=== PATIENT | female | born 1945 | race Caucasian/White ===

== ENCOUNTER 2017-04-26 13:04 | Emergency (ER) | payer MEDICARE, MEDICAID ==
[~2017-04-26] VITALS: Ht 170.2 cm; Wt 65.8 kg
[~2017-04-26 13:04] MED LIST: AMLO5TAB PO; AMOXICOT500 MG PO; ATENOLOL50 MG PO; B COMPLEX1 EACH PO; CITALOPRAM40 MG PO; DIPHENHYDRAMINE25 M1 PO; FLUOXETINE20 MG PO; FLUTICASONE 50M16 GM; HYDROXYZINE50 MG PO; LISINOPRIL/HCTZ1 TA3 PO; LORTAB 5/500 501 TAB PO; MEDROL 4MG. DOSE4 MG PO; MELOXICAM7.5 MG PO; NAPROSYN 500MG500 MG PO; NAPROXEN SODIU220 MG PO; NORCO 325 MG-51 TAB PO; OMEPRAZOLE40 MG PO; PLAVIX75 MG PO; PRAVASTATIN SOD40 MG PO; PROPRANOLOL HCL10 MG PO; SPIRIVA HA1 PUFF/INH IH; TESSALON PERLE100 M1 PO; TRAZODONE50 MG PO; WELLBUTRIN 75MG75 MG PO
[2017-04-26] MEDS ORDERED: PERCOGESIC EXTR1 TAB PO (13:23)
[2017-04-26] MEDS ORDERED: KEFLEX 500MG.500 MG PO (13:23)
[2017-04-26] MEDS ORDERED: SILVADENE400 GM/JAR TP (13:24)
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
[2017-04-26 13:29] VITALS: BP 123/70
--- OUTSIDE RECORDS SUMMARY | 2017-04-26 13:53 | External Medical Summary Rpt ---
Author Author , ARIC CORBETT Address Unknown Phone [email or web address] Team Providers Care Production Proofreader Name Role Phone A Taco FLETCHER MD PSC, A Unavailable Unavailable Taco FELTCHER MD PSC ATTILI ANI, ATTILI Unavailable Unavailable ANI [facility] & Unavailable Unavailable CRITICAL, [facility] BEINEKE CHRISTIANO, BEINEKE Unavailable Unavailable CHRISTIANO BENSADOUN NICK, Unavailable Unavailable BENSADOUN NICK LARRY, LARRY Unavailable Unavailable [facility], Unavailable Unavailable [facility], [facility] TE WONG, TE JUDITH Unavailable Unavailable TE WONG, TE WONG Unavailable Unavailable [facility] Unavailable [facility]available [facility]available [facility]available [facility] Unavailable Unavailable INC, [facility] Un[facility] Un[facility]PITAL P, [facility] JERMAINE MARCO A, JERMAINE MARCO A Unavailable Unavailable [facility] RADHA VALENTIN, Unavailable Unavailable RADHA VALENTIN ELVA MICHELLE, ELVA MICHELLE Unavailable Unavailable [facility], [facility] C Unavailable Unavailable [facility] PANCHITO ART, PANCHITO Unavailable Unavailable ART JR. WILMA ANT, WILMA, Unavailable Unavailable JRBrad GOODE MAR, RUPA MAR Unavailable Unavailable SILVEIRA JAM, Unavailable Unavailable SILVEIRA JAM DOHERTY MAT, Unavailable Unavailable DOHERTY MAT DOMINIC OSWALD, DOMINIC OSWALD Unavailable Unavailable [facility], [facility], [facility] Unavailable Unavailable INC, [facility] PULMANO TORO, PULMANO Unavailable Unavailable TORO PURDOM MAT, PURDOM Unavailable Unavailable MAT [facility], Unavailable Unavailable [facility], Unavailable Unavailable [facility] Unavailable Unavailable [facility]AT, [facility] Unavailable [facility]available [facility]AT, [facility] RENUSCH, RENUSCH Unavailable Unavailable TY KAROL, TY Unavailable Unavailable KAROL SADEK MOH, SADEK MOH Unavailable Unavailable SCIFRES ANG, SCIFRES Unavailable Unavailable ANG DONAHUE MK, DONAHUE Unavailable Unavailable [facility], Unavailable Unavailable [facility] Un[facility] Unavailable Un[facility] [place] [facility], [facility] Purpose Continuity of Care Document - 06-03-2010 through 2016 Problems Code Diagnosis DOS Provider Status I10 ESSENTIAL 03-06-2017 [facility] HYPERTEN[facility]O [facility] N J449 CHRONIC 03-06-2017 [facility]IVE [facility] PULMONARY INC DISEASE UNS K219 GASTRO-ESOP 03-06-2017 [facility] H REFLUX [facility] DISEASE INC WITHOUT ESOPHAGITIS M160 BILATERAL 03-06-2017 [facility] OSTEOARTHRI [facility] TIS OF HIP M1611 UNILATERAL 03-06-2017 [place] [facility] TIS RIGHT HIP M1612 UNILATERAL 03-06-2017 [place] PRIMARY [facility] OSTEOARTHRI IMAGING ASS TIS LEFT HIP S30528 PAIN IN 03-06-2017 [place] RIGHT HIP MEDICAL IMAGING ASS Y04958 PAIN IN 03-06-2017 [place] LEFT HIP MEDICAL IM[facility]ING ASS Z720 TOBACCO USE 03-06-2017 [facility] INC D500 IRON 07-28-2016 [facility] DEFICIENCY SERV ANEMIA SEC [facility]OUNDATION TO BLOOD LOSS CHRONIC Z1231 ENCOUNTER 07-12-2016 [place] SCREENING MEDICAL MAMMO MALIG IMAGING ASS NEOPLASM BREAST G90627 ENCOUNTER 07-12-2016 [place] FOR MEDICAL SCREENING IMAGING ASS FOR OSTEOPOROSI S Z780 ASYMPTOMATI 07-12-2016 [place] C MEDICAL MENOPAUSAL IMAGING ASS STATE E538 DEFICIENCY 07-08-2016 [facility] OF OTHER [facility] SPECIFIED B INC GROUP VITAMINS E7800 PURE 07-08-2016 [facility] HYPERCHOLES [facility] TEROLEMIA INC UNSPECIFIED L509 URTICARIA 07-08-2016 [facility] UNSPECIFIED [facility] INC R945 ABNORMAL 07-08-2016 [facility] RESULTS OF [facility] LIVER INC FUNCTION STUDIES 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 SOLITARY 12-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 [facility] PULMONARY [facility] NODULE INC R918 OTHER 12-19-2015 [place] NONSPECIFIC MEDICAL ABNORMAL IMAGING ASS FINDING OF LUNG FIELD J439 EMPHYSEMA 12-17-2015 [facility] UNSPECIFIED [facility] INC K828 OTHER 11-28-2015 [place] SPECIFIED MEDICAL DISEASES OF IMAGING ASS GALLBLADDER L299 PRURITUS 11-28-2015 [facility] UNSPECIFIED [facility] INC R7989 OTHER SPEC 11-28-2015 [place] ABNORMAL MEDICAL FINDINGS IMAGING ASS BLOOD CHEMISTRY J069 ACUTE UPPER 09-11-2015 [facility] INFECTION UNSPECIFIED H2513 AGE-RELATED 08-29-2015 [facility] BILATERAL 4928 OTHER 06-06-2015 [place] EMPHYSEMA [facility]ICAL IMAGING ASS 11802 OTHER 06-06-2015 [place] DISEASES OF MEDICAL LUNG NOT IMAGING ASS ELSEWHERE CLASSIFIED 52536 OTHER 06-06-2015 [facility] NONSPECIFIC [facility] ABNORMAL INC FINDING OF LUNG FIELD 2689 UNSPECIFIED 02-28-2015 [facility] DEFICIENCY INCORPORAT 2724 OTHER AND 02-28-2015 [facility]NSPECIFIED [facility] INCORPORAT HYPERLIPIDE RAY 4019 UNSPECIFIED 02-28-2015 [facility] HYPERTENSIO INCORPORAT N 496 CHRONIC 02-28-2015 TE WONG AIRWAY OBSTRUCTION NEC 62478 ESOPHAGEAL 02-28-2015 TE WONG REFLUX 7242 LUMBAGO 02-28-2015 TE WONG 81477 OBSTRUCTIVE 12-11-2014 [facility] CHRONIC [facility] BRONCHITIS INC WITHOUT EXACERBAT V0481 NEED 06-21-2014 TE WONG PROPHYLACTI C VACCINATION &INOCULATIO N FLU V7612 OTHER 06-18-2014 [facility] MAMMOGRAM INC 4919 UNSPECIFIED 05-28-2014 [facility] CHRONIC [facility] BRONCHITIS INC V5869 LONG-TERM 05-22-2014 [facility] (CURRENT) [facility] USE OF INC OTHER MEDICATIONS 7906 OTHER 01-22-2014 [facility] BLOOD CHEMISTRY 49153 UNSPEC 01-02-2014 [place] [facility] HISTOPLASMO SERV SIS WITHOUT [facility]OUNDATIO MENTION MANIFEST 4293 CARDIOMEGAL 11-02-2013 [facility] P 27051 HISTOPLASMA 05-16-2013 [place] [facility] CAPSULATUM SERV PNEUMONIA FOUNDATIO 2449 UNSPECIFIED 05-16-2013 [facility] HYPOTHYROID INC ISM 02076 UNSPECIFIED 01-12-2013 [place] ABNORMAL MEDICAL MAMMOGRAM IMAGING ASS 55379 UNSPECIFIED 01-03-2013 [facility] HISTOPLASMO INC SIS PNEUMONIA 02035 OTHER 12-22-2012 [place] SPECIFIED MEDICAL DISORDERS IMAGING ASS OF BREAST V163 FAMILY 12-22-2012 [place] HISTORY OF MEDICAL MALIGNANT IMAGING ASS NEOPLASM OF BREAST 43708 INCONCLUSIV 12-13-2012 [place] E MAMMOGRAM MEDICAL IMAGING ASS 2722 MIXED 12-04-2012 TE JUDITH HYPERLIPIDE RAY 4439 UNSPECIFIED 12-04-2012 TE JUDITH PERIPHERAL VASCULAR DISEASE 486 PNEUMONIA, 10-24-2012 [facility] ORGANISM SERV UNSPECIFIED FOUNDATIO 5130 ABSCESS OF 10-24-2012 [facility] LUNG SERV [facility] 515 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 5183 PULMONARY 10-24-2012 [facility] EOSINOPHILI SERV A [facility]OUND[facility]IO 5110 PLEURISY 10-10-2012 [place] WITHOUT MEDICAL MENTION IMAGING ASS EFFUS/[place] [address] SHORTNESS 10-10-2012 [facility] OF BREATH [facility] INC V0382 NEED PROPH 07-21-2012 TE JUDITH VACCINATION AGAINST STREP PNEUMONE 7862 COUGH 05-19-2012 [facility] P[facility] CRITICAL 4920 EMPHYSEMATO 03-03-2012 [place] US BLEB MEDICAL IMAGING ASS 67810 CHEST PAIN 02-25-2012 [facility] UNSPECIFIED [facility] INC 43587 OTHER CHEST 02-23-2012 A Taco FLETCHER PAIN PSC 4011 ESSENTIAL 01-28-2012 A Taco FLETCHER HYPERTENSIO PSC N, BENIGN 09495 UNSPECIFIED 01-02-2012 [facility] S[facility] OF ANKLE SPRAIN AND STRAIN 93034 SWELLING OF 12-31-2011 [place] [facility]B [facility] E8889 UNSPECIFIED 12-31-2011 [place] [facility]ALL [facility] 4619 ACUTE 10-28-2011 A Taco FLETCHER SINUSITISMD PSC UNSPECIFIED 4829 UNSPECIFIED 06-16-2010 [facility]ACT[facility] PNEUMONIA INTER 62389 ACUTE 06-16-2010 [facility] RESPIRATORY [facility] FAILURE INTER 514 PULMONARY 06-11-2010 [facility] CONGESTION SERV AND [facility] HYPOSTASIS 5180 PULMONARY 06-11-2010 [facility] COLLAPSE SERV [facility] 41901 ABDOMINAL 06-11-2010 [facility] PAIN RIGHT SERV LOWER [facility] QUADRANT 27023 ACUTE AND 06-06-2010 [facility] CHRONIC SERV RESPIRATORY [facility] FAILURE 7931 NONSPEC 06-06-2010 [facility] FIND RAD SERV OTH EXAM [facility] BODY STRUCT LUNG FIELD V554 ATTN OTHER 06-06-2010 [facility] ARTIFICIAL SERV OPENING [facility] DIGESTIVE TRACT 06274 ATRIAL 06-04-2010 [facility] FIBRILLATIO SERV N [facility] 4660 ACUTE 06-04-2010 [facility] HOSPI 0389 UNSPECIFIED 06-03-2010 [facility] 4589 UNSPECIFIED 06-03-2010 [facility] HYPOTENSION 481 PNEUMOCOCCA 06-03-2010 [facility] L PNEUMONIA SERV FOUND[facility] 5185 PULMONARY 06-03-2010 [facility] INSUFFICIEN SERV CY FOLLOW FOUND[facility]IO TRAUMA & SURGERY 16427 SEPTIC 06-03-2010 [facility] 58450 VENTILATOR 06-03-2010 [facility] PNEUMONIA V550 ATTENTION 06-03-2010 [facility] TO SERV TRACHEOSTOM FOUNDATIO Y Immunization Name Date Rout CVX Reac Dose Comm Prov Is Faci e tion ent ider Refu lity Give sed n IIV 11-0 135 JAYSON No JAYSON VACC 9-20 S S INE 12 JUDITH PRES ERV FREE JUDITH INCR EASE D AG CONT ENT IM PPSV 11-0 33 JAYSON No JAYSON 23 9-20 S S VACC 12 JUDITH INE 2 YRS OR JUDITH OLDE R FOR SUBQ /IM USE Procedures Procedure DOS Code Location Performer Comment RADEX HIP 27626 [place] LARRY 7 MEDICAL UNILATERA IMAGING L WITH ASS PELVIS 2-3 VIEWS THERAPEUT 16967 [facility] IC 7 [facility] PROPHYLAC INC INC TIC/DX INJECTION SUBQ/IM COMPUTER- 35945 [facility] AIDED 6 MEDICAL CHRISTIANO DETECTION IMAGING ASS SCREENING MAMMOGRAP HY DXA BONE 86058 [facility] 6 MEDICAL CHRISTIANO STUDY 1/> IMAGING SITES ASS AXIAL SKEL SCREENING G0202 [place] [address] MEDICAL CHRISTIANO MAMMOGRAP IMAGING HY DANIS ASS INCL CAD WHEN PERFORMD BLOOD 51382 [facility] COUNT 6 [facility] COMPLETE INC INC AUTO&AUTO DIFRNTL WBC COMPREHEN 73072 [facility] B[facility] SIVE 6 [facility] METABOLIC INC INC PANEL CYANOCOBA 79574 [facility] B[facility] ANAI 6 [facility] VITAMIN INC INC B-12 COLLECTIO 24374 [facility] N VENOUS 6 [facility] BLOOD INC INC VENIPUNCT URE LIPID 64663 [facility] PANEL 6 [place] [address] [facility] THYROID 6 [facility] STIMULATI INC INC NG HORMONE TSH CT THORAX 41133 [facility] B[facility] W/O 6 [facility] CONTRAST INC INC MATERIAL GAS 10352 [facility] DILUT/WAS 6 [facility] HOUT LUNG INC INC VOL W/WO DISTRIB VENT&V BRNCDILAT 72661 [facility] RSPSE 6 [facility] SPMTRY INC INC PRE&[place] [address] [facility] B[facility] DIFFUSING 6 [facility] CAPACITY INC INC NONINVASI 41484 [facility] VE 6 [facility] EAR/PULSE [place] [address] [facility] ABDOMINAL 6 [facility] REAL INC INC TIME W/IMAGE LIMITED COLLECTIO 41398 [facility]IRAN N VENOUS 6 [facility] BLOOD INC INC VENIPUNCT URE BLOOD 94080 [facility] COUNT 6 [facility] COMPLETE INC INC AUTO&[place] [address] [facility] B[facility] THYROID 6 [facility] STIMULATI INC INC NG HORMONE TSH COMPREHEN 46366 [facility] B[facility] SIVE 6 [facility] METABOLIC INC INC PANEL DETERMINA 42093 [place] [facility] TION 5 [facility]G [facility]FRACTIV [facility] 18480 [facility] SCIFRES MEDICAL 5 VISION ANG XM&EVAL CENTER [facility] NEW PT 1/> VST CT THORAX 53019 [facility] B[facility] W/O 5 [facility] CONTRAST INC INC MATERIAL COLLECTIO 61233 TE WONG N VENOUS 5 BLOOD VENIPUNCT URE LIPID 04660 [facility] PANEL 5 DIAGNOSTI DIAGNOSTI CS CS INCORPORA INCORPORA T T BLOOD 28214 [facility] COUNT 5 DIAGNOSTI DIAGNOSTI COMPLETE CS CS AUTO&AUTO INCORPORA INCORPORA DIFRNTL T T WBC COMPREHEN 76856 [facility] SIVE 5 DIAGNOSTI DIAGNOSTI METABOLIC CS CS PANEL INCORPORA INCORPORA T T 25 23096 [facility] HYDROXY 5 DIAGNOSTI DIAGNOSTI INCLUDES CS CS FRACTIONS INCORPORA [place] [address] [facility] THYROID 5 DIAGNOSTI DIAGNOSTI STIMULATI CS CS NG INCORPORA INCORPORA HORMONE T T TSH PUL G0424 [facility] REHAB 5 [facility] INCL EXER INC INC 1 HR PER SESS TO 2 PER DAY PUL G0424 [facility] REHAB 5 [facility] INCL EXER INC INC 1 HR PER SESS TO 2 PER DAY PUL G0424 [facility] REHAB 5 [facility] INCL EXER INC INC 1 HR PER SESS TO 2 PER DAY PUL G0424 [facility] REHAB 5 [facility] INCL EXER INC INC 1 HR PER SESS TO 2 PER DAY PUL G0424 [facility] B[facility] REHAB 5 [facility] INCL EXER INC INC 1 HR PER SESS TO 2 PER DAY PUL G0424 [facility] B[facility]K REHAB 5 [facility] INCL EXER INC INC 1 HR PER SESS TO 2 PER DAY PUL G0424 [facility] B[facility] REHAB 5 [facility] INCL EXER INC INC 1 HR PER SESS TO 2 PER DAY PUL G0424 [facility] B[facility] REHAB 5 [facility] INCL EXER INC INC 1 HR PER SESS TO 2 PER DAY PUL G0424 [facility] B[facility] REHAB 5 [facility] INCL EXER INC INC 1 HR PER SESS TO 2 PER DAY ADMINISTR G0008 TE WONG ATION OF 4 INFLUENZA VIRUS VACCINE INFLUENZA Q2038 TE TIWARI JUDITH VACC 4 SPLIT VIRUS 3 YRS & > IM FLUZONE SCREENING G0202 [facility] B[facility]K 4 [facility] MAMMOGRAP INC INC HY DANIS INCL CAD WHEN PERFORMD COMPUTER- 94655 [facility] AIDED 4 [facility] DETECTION INC INC SCREENING MAMMOGRAP HY NONINVASI 99412 [facility] VE 4 [facility] EAR/PULSE INC INC OXIMETRY SINGLE DETER GAS 12324 [facility] DILUT/WAS 4 [facility] HOUT LUNG INC INC VOL W/WO DISTRIB VENT&V BRNCDILAT 69470 [facility] RSPSE 4 [facility] SPMTRY INC INC PRE&[place] [address] [facility] B[facility] DIFFUSING 4 [facility] CAPACITY INC INC COMPREHEN 38125 [facility] SIVE 4 [facility] METABOLIC INC INC PANEL BLOOD 86871 [facility] COUNT 4 [facility] COMPLETE INC INC AUTO&AUTO DIFRNTL WBC COLLECTIO 73830 [facility] N VENOUS 4 [facility] [place]LOOD [place] [address] [facility] B[facility] THYROID 4 [facility] STIMULATI INC INC NG HORMONE TSH BASIC 68262 [facility] METABOLIC 4 DIAGNOSTI DIAGNOSTI PANEL CS CS CALCIUM TOTAL CT THORAX 02280 [facility] W/O 4 [facility] CONTRAST INC INC MATERIAL 3D 67386 [facility] RENDERING 4 [facility] INC INC W/INTERP& POSTPROC DIFF WORK STATION ECHO 62327 [facility] TTHRC R-T 4 [facility] 2D INC INC W/WOM-MOD E COMPL SPEC&COLR D LIPID 90774 [facility] PANEL 4 DIAGNOSTI DIAGNOSTI CS CS BLOOD 25225 [facility] COUNT 4 DIAGNOSTI DIAGNOSTI COMPLETE CS CS AUTO&AUTO DIFRNTL WBC COMPREHEN 77699 [facility] SIVE 4 DIAGNOSTI DIAGNOSTI METABOLIC CS CS PANEL 25 21701 [facility] HYDROXY 4 DIAGNOSTI DIAGNOSTI INCLUDES [place] [address] [facility] THYROID 4 DIAGNOSTI DIAGNOSTI STIMULATI [place] [address] [facility] B[facility] THYROID 3 [facility] STIMULATI INC INC NG HORMONE TSH HEPATITIS 72296 [facility] A 3 [facility] ANTIBODY INC INC HAAB BILIRUBIN 65106 KIRANLILI MALONEYON DIRECT 3 [facility] INC INC HEPATITIS 38023 K[facility] C 3 [facility] ANTIBODY INC INC PROTHROMB 35410 [facility] IN TIME 3 [facility] INC INC HEPATITIS 38984 [facility] Pereyra CORE 3 [facility] ANTIBODY INC INC HBCAB TOTAL HEPATITIS 45425 [facility] Pereyra SURF 3 [facility] [address] K[facility] HEPATITIS 3 [facility] B INC INC SURFACE ANTIGEN THROMBOPL 00051 [facility] ASTIN 3 [facility] TIME INC INC PARTIAL PLASMA/WH OLE BLOOD BLOOD 98263 [facility] COUNT 3 [facility] COMPLETE INC INC AUTO&AUTO DIFRNTL WBC COMPREHEN 22016 [facility] SIVE 3 [facility] METABOLIC INC INC PANEL COLLECTIO 20454 K[facility]AN KIRAN N VENOUS 3 [facility] BLOOD INC INC VENIPUNCT URE COLLECTIO 91208 [facility] N VENOUS 3 [facility] BLOOD INC INC VENIPUNCT URE CT THORAX 07159 [facility] B[facility] W/O 3 [facility] CONTRAST INC INC MATERIAL 3D 88439 [facility] RENDERING 3 [facility] INC INC W/INTERP& POSTPROC DIFF WORK STATION BLOOD 53248 [facility] COUNT 3 [facility] COMPLETE INC INC AUTO&AUTO DIFRNTL WBC BASIC 49057 [facility] METABOLIC 3 [facility] PANEL INC INC CALCIUM TOTAL DIAGNOSTI G0206 [facility] C 3 [facility] MAMMOGRAP INC INC HY INCL CAD WHEN PERF; UNI BLOOD 21237 KIRANLILI BECK COUNT 3 [facility] COMPLETE INC INC AUTO&AUTO DIFRNTL WBC COLLECTIO 73614 KIRANLILI BECK N VENOUS 3 [facility] BLOOD INC INC VENIPUNCT URE BASIC 33640 KIRAN KIRAN METABOLIC 3 [facility] PANEL INC INC CALCIUM TOTAL COMPUTER- 47800 [facility] AIDED 3 [facility] DETECTION INC INC SCREENING MAMMOGRAP HY SCREENING G0202 [facility] BECK 3 [facility] MAMMOGRAP INC INC HY DANIS INCL CAD WHEN PERFORMD DIAGNOSTI G0206 [place] 3 MEDICAL RIMA MAMMOGRAP IMAGING HY INCL ASS CAD WHEN PERF; UNI CUL BACT 67720 [facility] XCPT 3 Y Y [facility] BLOOD/STO OL AEROBIC ISOL CULTURE 48173 [facility] TUBERCLE/ 3 Y Y [facility] AC[facility]-FAST BACILL[facility] ANY ISOL SMR PRIM 33528 [facility] SRC 3 Y Y [facility] NT&/AFS BCT FNGI PARASIT TISS DENISE 63486 [facility] SLIDE 3 Y Y [facility] SKN/HR/NL S FNGI/ECTO PARASIT IAADI 95162 [facility] PNEUMOCUS 3 Y Y [facility] CARIN[facility] IADNA 50354 [facility] RESPIRATR 3 Y Y Y PROBE & [facility] REV TRNSCR 3-5 TARGETS BRNCC 30702 [facility] BRUSHING/ 3 Y Y [facility] BRUSHINGS BRONCHOSC 10188 [facility] OPY 3 Y Y [facility] /ENDOBRNC L BX 1+ SITES BRONCHOSC 02541 [facility] OPY 3 MEDICAL NICK W/TRANSBR SERV ONCHIAL FOUNDATIO LUNG BX 1 LOBE IADNA NOS 52084 [facility] DIRECT 3 Y Y PROBE [facility] EACH ORGANISM SPECIAL 68970 [facility] STAIN 3 Y Y GROUP [address] [place] [address] MICROORGA NISMS I&R CULTURE 39161 [facility] 3 Y Y MOLD/[facility] T PRSMPTV OTH XCPT BLOOD SMR PRIM 61468 [facility] SRC 3 Y Y GRAM/[facility] SA STAIN BCT FUNGI/SARBJIT L VIRUS 31203 [facility] 3 Y Y E [facility] ID IMFLUOR STAIN EA INJECTION J2250 [facility] 3 Y Y [facility] HCL PER 1 MG INJECTION J3010 [facility] FENTANYL 3 Y Y [facility] 0.1 MG CONCENTRA 45425 [facility] TION 3 Y Y INFECTIOU [facility] S AGENTS VIRUS 99796 [facility] TISS CUL 3 Y Y INOCULAGREAT [facility] ON CYTOPATHI C EFFECT CYTP 66553 [facility] SLCTV 3 Y Y [facility] ENHANCEME NT INTERPJ XCP[place] C/[place] [address] [facility] SURG 3 Y Y PATHOLOGY HEALTH SYSTEM GROSS&JAXON ROSCOPIC EXAM BASIC 95510 [facility] METABOLIC 3 [facility] PANEL INC INC CALCIUM TOTAL COMPLEMEN 93365 [facility] T 3 [facility] FIXATION INC INC TESTS EACH ANTIGEN 3D 56576 [facility] RENDERING 3 MEM [facility] INC INC W/INTERP& POSTPROC DIFF WORK STATION PRESSURIZ 52154 [facility] ED/NONPRE 3 [facility] SSURIZED INC INC INHALATIO N TREATMENT COLLECTIO 65155 [facility] N VENOUS 3 [facility] BLOOD INC INC VENIPUNCT URE CT THORAX 24778 [facility] B[facility] W/O 3 [facility] CONTRAST INC INC MATERIAL GAS 72691 [facility] B[facility] DILUT/WAS 3 [facility] HOUT LUNG INC INC VOL W/WO DISTRIB VENT&V BRNCDILAT 59235 [facility] RSPSE 3 [facility] SPMTRY INC INC PRE&POST- BRNCDILAT [place] BLOOD 53723 [facility] EBCK COUNT 3 [facility] COMPLETE INC INC AUTO&[place] [address] [place] [facility] DIFFUSING 3 MEDICAL JAM CAPACITY SERV FOUNDATIO BRNCDILAT 40630 [place] [facility] RSPSE 3 MEDICAL JAM SPMTRY SERV PRE&POST- FOUNDATIO BRNCDILAT [place] SPMTRY 55189 [place] [facility] W/VC 3 MEDICAL JAM EXPIRATOR SERV Y EDITH FOUNDATIO W/WO MXML VOL VNTJ GAS 24120 T[facility] SILVEIRA DILUT/WAS 3 MEDICAL JAM HOUT LUNG SERV VOL W/WO FOUNDATIO DISTRIB VENT&V COLLECTIO 67550 TE WONG N VENOUS 2 BLOOD VENIPUNCT URE IIV 74747 TE WONG VACCINE 2 PRESERV FREE INCREASED AG CONTENT IM PPSV23 17241 TE WONG VACCINE 2 2 YRS OR OLDER FOR SUBQ/IM USE ADMINISTR G0009 TE WONG ATION OF 2 PNEUMOCOC TORO VACCINE ADMINISTR G0008 TE WONG ATION OF [place] [address] CONFUCIANISM DOHERTY DIFFUSING 2 PULMONARY MAT CAPACITY & CRITICAL BRNCDILAT 53891 CONFUCIANISM DOHERTY RSPSE 2 PULMONARY MAT SPMTRY & PRE&POST- CRITICAL BRNCDILAT ADMN RADIOLOGI 57559 CONFUCIANISM DOHERTY C EXAM 2 PULMONARY MAT CHEST 2 & VIEWS CRITICAL FRONTAL&L ATERAL PLETHYSMO 35668 CONFUCIANISM DOHERTY GRAPHY 2 PULMONARY MAT LUNG & VOLUMES CRITICAL W/WO AIRWAY RESIST 3D 03667 [place] RENDERING 2 MEDICAL RIMA IMAGING W/INTERP& ASS POSTPROC DIFF WORK STATION CT THORAX 92478 [place] CON[place] 2 MEDICAL RIMA W/CONTRAS IMAGING T ASS MATERIAL COLLECTIO 60864 [facility]AN Fan VENOUS 2 [facility] BLOOD INC INC VENIPUNCT URE CREATININ 15352 KIRAN BECK E BLOOD 2 [place] [address] KIRAN BECK UREA 2 [facility] NITROGEN INC INC QUANTITAT ABY LOCM Q9967 KIRAN BECK [phone] [facility] MG/ML INC INC IODINE CONCENTRA TION PER ML RADIOLOGI 58110 [place] C EXAM 2 MEDICAL RIMA CHEST 2 IMAGING VIEWS ASS FRONTAL&L ATERAL RADIOLOGI 55312 K[facility]AN BECK C EXAM 2 [facility] CHEST 2 INC INC VIEWS FRONTAL&L ATERAL COLLECTIO 11648 A Taco ALFARO OSWALD N VENOUS 2 [facility] BLOOD PSC VENIPUNCT URE LIPID 50194 A Taco ALFARO OSWALD PANEL 2 [facility] PSC BLOOD 67669 A Taco ALFARO OSWALD COUNT 2 [facility] COMPLETE PSC AUTO&AUTO DIFRNTL WBC TRANSFERA 01139 A Taco AKERS SE 2 [facility] ASPARTATE PSC AMINO AST SGOT TRANSFERA 62811 A Taco AKERS SE 2 [facility] ALANINE PSC AMINO ALT SGPT ANKLE L4350 [facility] CONTROL 2 ORTHOSIS STIRRUP STYL RIGID PREFAB RADEX 93882 [place] [facility] ANKLE 2 MEDICAL RIMA COMPLETE IMAGING MINIMUM 3 ASS VIEWS HOSPITAL 75543 [facility] DISCHARGE 0 Y OF ANT DAY [place] MANAGEMEN INTER T 30 MIN/< SBSQ 92763 [facility] 0 Y OF ANT CARE/DAY [place] 25 INTER MINUTES SBSQ 16544 [facility] 0 Y OF ANT CARE/DAY [place] 25 INTER MINUTES SBSQ 53556 [facility] 0 Y OF ANT CARE/DAY [place] 25 INTER MINUTES RADIOLOGI 40676 [place] RUPA MAR C 0 MEDICAL EXAMINATI SERV ON CHEST FOUNDATIO [place] FRONTAL RADIOLOGI 16023 [place] EL[place] MICHELLE C 0 MEDICAL EXAMINATI SERV ON CHEST FOUNDATIO [place] FRONTAL SBSQ 25398 [facility] 0 Y OF ANT CARE/DAY [place] 25 INTER MINUTES RADIOLOGI 07514 [place] EL[place] MICHELLE C 0 MEDICAL EXAMINATI SERV ON CHEST FOUNDATIO [place] FRONTAL SBSQ 17417 [facility] 0 MEDICAL VALENTIN CARE/DAY SERV 25 FOUNDATIO MINUTES RADEX 56467 [place] PANCHITO ABDOMEN 1 0 MEDICAL ART SERV ANTEROPOS FOUNDATIO TERIOR VIEW RADIOLOGI 36460 [place] C 0 MEDICAL TORO EXAMINATI SERV ON CHEST FOUNDATIO [place] FRONTAL SBSQ 44588 [place] [facility] 0 MEDICAL VALENTIN CARE/DAY SERV 35 FOUNDATIO MINUTES CRITICAL 36622 [facility] 0 MEDICAL VALENTIN ILL/INJUR SERV ED FOUNDATIO PATIENT INIT 30-74 MIN RADIOLOGI 62637 [place] ATTILI C 0 MEDICAL ANI EXAMINATI SERV ON [facility] [place] [address] [place] [facility] 0 MEDICAL EXAMINATI SERV ON [facility] [facility] CRITICAL 21716 [facility] 0 MEDICAL VALENTIN ILL/INJUR SERV ED FOUNDATIO PATIENT INIT 30-74 MIN SBSQ 13124 [place] [facility] 0 MEDICAL NICK CARE/DAY SERV 35 FOUNDATIO MINUTES RADIOLOGI 63863 [place] [facility] C 0 MEDICAL MK EXAMINATI SERV ON [facility] [place] RADEX 82226 [place] [facility] ABDOM[facility] 1 0 MEDICAL MK SERV ANTEROPOS FOUNDATIO TER[place] RADEX 04760 [place] [facility] ABDOMEN 1 0 MEDICAL MK SERV ANTEROPOS FOUNDATIO TERIOR VIEW RADIOLOGI 83432 [place] [facility] C 0 MEDICAL MK EXAMINATI SERV ON [facility] [place] SBSQ 36935 [place] [facility] 0 MEDICAL NICK CARE/DAY SERV 35 FOUNDATIO MINUTES CRITICAL 64282 [facility] 0 MEDICAL VALENTIN ILL/INJUR SERV ED FOUNDATIO PATIENT INIT 30-74 MIN RADIOLOGI 43317 [place] [facility] C 0 MEDICAL EXAMINATI SERV ON [facility] [place] FRONT[place] ECG 28477 [place] JERMAINE MARCO A ROUTINE 0 MEDICAL ECG SERV W/LEAST FOUNDATIO 12 LDS I&R ONLY ECG 65838 [place] [facility] C ROUTINE 0 MEDICAL ECG SERV W/LEAST FOUNDATIO 12 LDS I&R ONLY RADIOLOGI 01579 [place] [facility] C 0 MEDICAL EXAMINATI SERV ON [facility] [place] CRITICAL 21210 [place] [facility] CARE 0 MEDICAL VALENTIN ILL/INJUR SERV ED FOUNDATIO PATIENT INIT 30-74 MIN BRNCHSC 31085 TEDDY DREWRADHA W/BRNCL 0 MEDICAL VALENTIN ALVEOLAR SERV LAVAGE FOUNDATIO SPECIAL 13453 [facility] STAIN 0 Y OF MAT GROUP 1 [place] [facility] NISMS I&R CLOSED 3324 [facility] BIOPSY OF 0 Y Y [facility] CYTP 37919 [facility] SLCTV 0 Y OF MAT CELL [place] [facility] NT INTERPJ XCPT C/V CONT 9672 [facility] IN[facility]ASIVE 0 Y Y [facility] 96 CONSECUTI VE HRS/MORE CRITICAL 96717 TEDDY SILVEIRA CARE 0 MEDICAL JAM ILL/INJUR SERV ED FOUNDATIO PATIENT ADDL 30 MIN CRITICAL 53750 T[facility] SIL[facility] CARE 0 MEDICAL JAM ILL/INJUR SERV ED FOUNDATIO PATIENT INIT 30-74 MIN RADIOLOGI 20466 TEDDY ELVA MICHELLE C 0 MEDICAL EXAMINATI SERV ON [facility] [place] [facility] AMB A0431 [facility] PETROLEUM SERVICE 0 CONVNTION HELICOPTE HELICOPTE AIR SRVC RS INC RS INC TRANSPORT [address] WAY Encounters Encounter Start End Date Code Location Performer Type Date EMERGENCY 35397 [facility] DEPT 7 7 PHYSICIAN VISIT S, PLLC HIGH SEVERITY& THREAT FUNCJ EMERGENCY 08893 [facility] 7 7 [facility] V[facility] MODERATE SEVERITY [facility]OSP[facility] - 7 7 [facility] OUTPATIEN [facility] OFFICE 53645 TEDDY SILVEIRA OUTPATIEN 6 6 MEDICAL JAM T VISIT SERV 25 FOUNDATIO MINUTES [facility] KIRAN - 6 6 [facility] OUTPATIEN [facility] KIRAN - 6 6 [facility]IEN [facility] K[facility] - 6 6 [facility] K[facility] - 6 6 [facility]PATI[facility] K[facility] - 6 6 [facility] K[facility] - 6 6 [facility]PATI[facility] - 5 5 [facility] OUTPATIEN [facility] EMERGENCY 09555 [facility] 5 5 PHYSICIAN DEPARTMEN S, [facility] T VISIT MODERATE SEVERITY EMERGENCY 12735 [facility] 5 5 [facility] VISIT LIMITED/M [facility]OR [facility] K[facility] - 5 5 [facility] OUTPATIEN [facility] OFFICE 50003 TE JUDITH TE JUD[facility] 5 5 T VISIT 25 MINUTES HOSPITAL [facility] - 5 5 [facility] OUTPATIEN [facility] KIRAN - 5 5 [facility]EN [facility] KIRAN - 4 4 [facility]PATIEN [facility] K[facility] - 4 4 [facility]PATIEN [facility] KIRAN - 4 4 [facility] OUTPATIEN [facility] OFFICE 20166 TEDDY SILVEIRA OUTPATIEN 4 4 MEDICAL JAM T VISIT SERV 25 FOUNDATIO [facility] KIRAN - 4 4 [facility] OUTPATIEN [facility] KIRAN - 4 4 [facility] OUTPATIEN [facility] OFFICE 01286 TEDDY RAOUL OUTPATIEN 3 3 MEDICAL JAM T VISIT SERV 25 FOUNDATIO [facility] KIRAN - 3 3 [facility] OUTPATIEN [facility] KIRAN - 3 3 [facility] OUTPATIEN [facility] - 3 3 [facility] - 3 3 [facility] - 3 3 [facility] OUTPATIEN INC T OFFICE 68017 TE WONG TE JUDITH OUTPATIEN 3 3 T VISIT 15 MINUTES OFFICE 63206 TEDDY ALEXISSILVEIRA OUTPATIEN 3 3 MEDICAL JAM T VISIT SERV 25 FOUNDATIO MINUTES HOSPITAL UNIVERSIT - 3 3 [facility] KIRAN - 3 3 [facility] OUTPATIEN INC T OFFICE 60081 TE WONG TE JUDITH OUTPATIEN 2 2 T VISIT 25 MINUTES OFFICE 13791 TE JUDITH TE JUDITH OUTPATIEN 2 2 T VISIT 15 MINUTES HOSPITAL KIRAN - 2 2 [facility] OUT[facility]IEN [facility] KIRAN - 2 2 [facility] OUTPATIEN INC T OFFICE 05311 A Taco CRAWFORD OUTPATIEN 2 2 [facility] KAROL T VISIT PSC 15 MINUTES [facility]OSPITAL KIRAN - 2 2 [facility] OUTPATIEN INC T OFFICE 43556 A Taco AKERS OUTPATILALO 2 2 [facility] T VISIT PSC 25 MINUTES [facility]OSPITAL KIRAN - 2 2 [facility] OUTPATIEN INC T EMERGENCY 60705 KIR[facility] 2 2 [facility] DEPARTMEN [facility] T VISIT LOW/MODER SEVERITY OFFICE 29929 A Taco AKERS OUTPATILALO 2 2 [facility] T VISIT PSC 15 MINUTES HOSPITAL UNIVERSIT - 0 0 Y [facility]
--- OUTSIDE RECORDS SUMMARY | 2017-04-26 13:53 | External Medical Summary Rpt ---
Author Author , ARIC CORBETT Address Unknown Phone [email or web address] Care Team Providers Care Charge Nurse Name Role Phone A Taco FLETCHER MD PSC, A Unavailable Unavailable Taco FLETCHER MD PSC ATTILI ANI, ATTILI Unavailable Unavailable ANI [facility] Un[facility] Unavailable CRITICAL, [facility] BEINEKE CHRISTIANO, BEINEKE Unavailable Unavailable CHRISTIANO BENSADOUN NICK, Unavailable Unavailable BENSADOUN NICK LARRY, LARRY Unavailable Unavailable [facility], Unavailable Unavailable [facility] Un[facility] Unavailable [facility], [facility] TE WONG, TE JUDITH Unavailable Unavailable TE WONG, TE WONG Unavailable Unavailable [facility] Unavailable [facility]available [facility]available [facility]available [facility] Unavailable Unavailable INC, [facility] Unavailable Unavailable HOSPITAL P, [facility] P JERMAINE MARCO A, JERMAINE MARCO A Unavailable Unavailable [facility] RADHA VALENTIN, Unavailable Unavailable [...] Unavailable ANG DONAHUE MK, DONAHUE Unavailable Unavailable [facility], Unavailable Unavailable [facility] Unavailable Un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 [facility] TIS OF HIP M1611 UNILATERAL 03-06-2017 [facility] TIS RIGHT HIP M1612 UNILATERAL 03-06-2017 [facility]STEO[facility]THRI [facility] TIS LEFT HIP [id number] PAIN IN 03-06-2017 [facility] RIGHT [facility]IP [facility] Q01911 PAIN IN 03-06-2017 [facility] LEFT [facility]IP [facility] Z720 TOBACCO USE 03-06-2017 [facility] INC D500 IRON 07-28-2016 [place] [facility] DEFICIENCY SERV ANEMIA SEC [facility]OUNDATION TO BLOOD LOSS CHRONIC Z1231 ENCOUNTER 07-12-2016 [facility] SCRE[facility]ING [facility]ICAL MAMMO MALIG IMAGING ASS NEOPLASM BREAST E10891 ENCOUNTER 07-12-2016 [facility] FOR [facility]ICAL SCREENING IMAGING ASS FOR OSTEOPOROSI S Z780 ASYMPTOMATI 07-12-2016 [facility] C MEDICAL MENOPAUSAL IMAGING ASS STATE E538 DEFICIENCY 07-08-2016 [facility] OF OTHER [facility] SPECIFIED B INC GROUP VITAMINS E7800 PURE 07-08-2016 [facility] HYPERCHOLES [facility] TEROLEMIA INC UNSPECIFIED L509 URTICARIA 07-08-2016 [facility]NSPECIFIED [facility] INC R945 ABNORMAL 07-08-2016 [facility] RESULTS OF [facility] LIVER INC FUNCTION STUDIES 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 R911 SOLITARY 12-19-2015 [facility] PULMONARY [facility] NODULE INC R918 OTHER 12-19-2015 [facility] NONSPECIFIC MEDICAL ABNORMAL IMAGING ASS FINDING OF LUNG FIELD J439 EMPHYSEMA 12-17-2015 [facility] UNSPECIFIED [facility] INC K828 OTHER 11-28-2015 [facility] SPECIFIED MEDICAL DISEASES OF IMAGING ASS GALLBLADDER L299 PRURITUS 11-28-2015 [facility] UNSPECIFIED [facility] INC R7989 OTHER SPEC 11-28-2015 [facility] ABNORMAL MEDICAL FINDINGS IMAGING ASS BLOOD CHEMISTRY J069 ACUTE UPPER 09-11-2015 [facility], RESPIRATORY PLLC INFECTION UNSPECIFIED H2513 AGE-RELATED 08-29-2015 [facility] BILATERAL 4928 OTHER 06-06-2015 [facility] EMPHYSEMA [facility] 31911 OTHER 06-06-2015 [facility] [place] DISEASES OF MEDICAL LUNG NOT IMAGING ASS ELSEWHERE CLASSIFIED 44828 OTHER 06-06-2015 [facility] NONSPECIFIC [facility] ABNORMAL INC FINDING OF LUNG FIELD 2689 UNSPECIFIED 02-28-2015 [facility]IT[facility] D [facility] DEFICIENCY INCORPORAT 2724 OTHER AND 02-28-2015 [facility] UNSPECIFIED DIAGNOSTICS INCORPORAT HYPERLIPIDE RAY 4019 UNSPECIFIED 02-28-2015 [facility] ESSENTIAL [facility] HYPERTENSIO INCORPORAT N 496 CHRONIC 02-28-2015 TE WONG AIRWAY OBSTRUCTION NEC 94469 ESOPHAGEAL 02-28-2015 TE WONG REFLUX 7242 LUMBAGO 02-28-2015 TE WONG 13947 OBSTRUCTIVE 12-11-2014 [facility] CHRONIC [facility] BRONCHITIS INC WITHOUT EXACERBAT V0481 NEED 06-21-2014 TE WONG PROPHYLACTI C VACCINATION &INOCULATIO N FLU V7612 OTHER 06-18-2014 [facility] MAMMOGRAM INC 4919 UNSPECIFIED 05-28-2014 [facility] CHRONIC [facility] BRONCHITIS INC V5869 LONG-TERM 05-22-2014 [facility] (CURRENT) [facility] USE OF INC OTHER MEDICATIONS 7906 OTHER 01-22-2014 [facility] ABNORMAL DIAGNOSTICS BLOOD CHEMISTRY 53246 UNSPEC 01-02-2014 [place] [facility] HISTOPLASMO SERV SIS WITHOUT FOUNDATIO MENTION MANIFEST 4293 CARDIOMEGAL 11-02-2013 [facility] P 84247 HISTOPLASMA 05-16-2013 [place] [facility]ICAL CAPSULATUM SERV PNEUMONIA FOUNDATIO 2449 UNSPECIFIED 05-16-2013 [facility] HYPOTHYROID INC ISM 75924 UNSPECIFIED 01-12-2013 [facility] [place] ABNORMAL MEDICAL MAMMOGRAM IMAGING ASS 13784 UNSPECIFIED 01-03-2013 [facility] HISTOPLASMO INC SIS PNEUMONIA 77204 OTHER 12-22-2012 [facility] [place] SPECIFIED MEDICAL DISORDERS IMAGING ASS OF BREAST V163 FAMILY 12-22-2012 [facility] [place] HISTORY OF MEDICAL MALIGNANT IMAGING ASS NEOPLASM OF BREAST 53546 INCONCLUSIV 12-13-2012 [facility] [place] E MAMMOGRAM [facility]ICAL IMAGING ASS 2722 MIXED 12-04-2012 TE JUDITH HYPERLIPIDE RAY 4439 UNSPECIFIED 12-04-2012 TE JUDITH PERIPHERAL VASCULAR DISEASE 486 PNEUMONIA, 10-24-2012 [place] [facility] ORGANISM SERV UNSPECIFIED FOUNDATIO 5130 ABSCESS OF 10-24-2012 [place] [facility] L[place]G [place] [facility] 515 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 5183 PULMONARY 10-24-2012 [place] [facility] EOSINOPHILI SERV A FOUNDATIO 5110 PLEURISY 10-10-2012 [facility] [place] WITHOUT MEDICAL MENTION IMAGING ASS EFFUS/[place] [address] SHORTNESS 10-10-2012 [facility] OF BREATH [facility] INC V0382 NEED PROPH 07-21-2012 TE JUDITH VACCINATION AGAINST STREP PNEUMONE 7862 COUGH 05-19-2012 [facility] 4920 EMPHYSEMATO 03-03-2012 [facility] [place] US BLEB [facility] 58690 CHEST PAIN 02-25-2012 [facility] UNSPECIFIED [facility] INC 87291 OTHER CHEST 02-23-2012 A Taco FLETCHER PAIN PSC 4011 ESSENTIAL 01-28-2012 A Taco FLETCHER HYPERTENSIO PSC N, BENIGN 45681 UNSPECIFIED 01-02-2012 [facility] S[facility] OF ANKLE SPRAIN AND STRAIN 23796 SWELLING OF 12-31-2011 [facility] E8889 UNSPECIFIED 12-31-2011 [facility] 4619 ACUTE 10-28-2011 A Taco FLETCHER SINUSITISMD PSC UNSPECIFIED 4829 UNSPECIFIED 06-16-2010 [place] BACTERIAL [facility] SAULT PNEUMONIA INTER 54710 ACUTE 06-16-2010 [place] RESPIRATORY [facility] SAULT FAILURE INTER 514 PULMONARY 06-11-2010 [place] [facility] CON[place] SERV AND [facility] HYPOSTASIS 5180 PULMONARY 06-11-2010 [place] [facility] COLLAPSE SERV [place] 13350 ABDOMINAL 06-11-2010 [place] [facility] PA[place] RIGHT SERV LOWER FOUND[facility] QUADRANT 17559 ACUTE AND 06-06-2010 [place] [facility] CHRONIC SERV RESPIRATORY FOUND[facility] FAILURE 7931 NONSPEC 06-06-2010 [place] [facility] FIND RAD SERV OTH EXAM [facility] BODY STRUCT LUNG FIELD V554 ATTN OTHER 06-06-2010 [place] [facility] ARTIFICIAL SERV OPENING FOUND[facility] DIGESTIVE TRACT 93935 ATRIAL 06-04-2010 [place] [facility] FIBRILLATIO SERV N FOUNDATIO 4660 ACUTE 06-04-2010 [facility] 0389 UNSPECIFIED 06-03-2010 [facility] 4589 UNSPECIFIED 06-03-2010 [facility] HYPOTENSION 481 PNEUMOCOCCA 06-03-2010 [place] [facility] L PNEUMONIA SERV FOUNDATIO 5185 PULMONARY 06-03-2010 [place] [facility] INSUFFICIEN SERV CY FOLLOW FOUNDATIO TRAUMA & SURGERY 88219 SEPTIC 06-03-2010 [facility] 91659 VENTILATOR 06-03-2010 [facility] PNEUMONIA V550 ATTENTION 06-03-2010 [place] [facility]ICAL TO SERV TRACHEOSTOM FOUNDATIO Y Immunization [...] DOS Code Location Performer Comment RADEX HIP 35060 [facility]Y 7 MEDICAL UNILATERA IMAGING L WITH ASS PELVIS 2-3 VIEWS THERAPEUT 61997 [facility] B[facility]K IC 7 [facility] PROPHYLAC INC INC TIC/DX INJECTION SUBQ/IM COMPUTER- 52997 [facility] AIDED 6 MEDICAL CHRISTIANO DETECTION IMAGING ASS SCREENING MAMMOGRAP HY DXA BONE 28863 [facility] 6 MEDICAL CHRISTIANO STUDY 1/> IMAGING SITES ASS AXIAL SKEL SCREENING G0202 [place] [address] MEDICAL CHRISTIANO MAMMOGRAP IMAGING HY DANIS ASS INCL CAD WHEN PERFORMD BLOOD 73660 [facility] COUNT 6 [facility] COMPLETE INC INC AUTO&AUTO DIFRNTL WBC COMPREHEN 84742 [facility] SIVE 6 [facility] METABOLIC INC INC PANEL CYANOCOBA 48716 [facility] B[facility] ANAI 6 [facility] VITAMIN INC INC B-12 COLLECTIO 91244 [facility] N VENOUS 6 [facility] BLOOD INC INC VENIPUNCT URE LIPID 89946 [facility] PANEL 6 [place] [address] [facility] B[facility] THYROID 6 [facility] STIMULATI INC INC NG HORMONE TSH CT THORAX 90824 [facility] W/O 6 [facility] CONTRAST INC INC MATERIAL GAS 79683 [facility] DILUT/WAS 6 [facility] HOUT LUNG INC INC VOL W/WO DISTRIB VENT&V BRNCDILAT 13042 [facility] RSPSE 6 [facility] SPMTRY INC INC PRE&[place] [address] [facility] DIFFUSING 6 [facility] CAPACITY INC INC NONINVASI 23584 [facility] VE 6 [facility] EAR/PULSE [place] M[place] [address] [facility] ABDOMINAL 6 [facility] REAL INC INC TIME W/IMAGE LIMITED COLLECTIO 06231 [facility] K[facility]AN N VENOUS 6 [facility] BLOOD INC INC VENIPUNCT URE BLOOD 98260 [facility] COUNT 6 [facility] COMPLETE INC INC AUTO&[place] [address] [facility] B[facility] THYROID 6 [facility] STIMULATI INC INC NG HORMONE TSH COMPREHEN 74502 [facility] B[facility] SIVE 6 [facility] METABOLIC INC INC PANEL DETERMINA 34970 [place] [facility] TION 5 [facility]RACTIV C[facility] E STATE OPHTH 23842 [facility] SCIFRES MEDICAL 5 VISION ANG XM&EVAL CENTER [facility] NEW PT 1/> VST CT THORAX 15655 [facility] BECK W/O 5 [facility] CONTRAST INC INC MATERIAL COLLECTIO 48242 TE WONG N VENOUS 5 BLOOD VENIPUNCT URE LIPID 03017 [facility] PANEL 5 DIAGNOSTI DIAGNOSTI CS CS INCORPORA INCORPORA T T BLOOD 27178 [facility] COUNT 5 DIAGNOSTI DIAGNOSTI COMPLETE CS CS AUTO&AUTO INCORPORA INCORPORA DIFRNTL T T WBC COMPREHEN 75539 [facility] SIVE 5 DIAGNOSTI DIAGNOSTI METABOLIC CS CS PANEL INCORPORA INCORPORA T T 25 47911 [facility] HYDROXY 5 DIAGNOSTI DIAGNOSTI INCLUDES CS CS FRACTIONS INCORPORA [place] [address] [facility] THYROID 5 DIAGNOSTI DIAGNOSTI STIMULATI [...] HY DANIS INCL CAD WHEN PERFORMD COMPUTER- 89026 [facility] AIDED 4 [facility] DETECTION INC INC SCREENING MAMMOGRAP HY NONINVASI 67708 [facility] VE 4 [facility] EAR/PULSE INC INC OXIMETRY SINGLE DETER GAS 13450 [facility] DILUT/WAS 4 [facility] HOUT LUNG INC INC VOL W/WO DISTRIB VENT&V BRNCDILAT 04692 [facility] RSPSE 4 [facility] SPMTRY INC INC PRE&[place] [address] [facility] B[facility] DIFFUSING 4 [facility] CAPACITY INC INC COMPREHEN 90229 [facility] SIVE 4 [facility] METABOLIC INC INC PANEL BLOOD 93088 [facility] COUNT 4 [facility] COMPLETE INC INC AUTO&AUTO DIFRNTL WBC COLLECTIO 84928 [facility] N VENOUS 4 [facility] [place] [address] [facility] B[facility] THYROID 4 [facility] STIMULATI INC INC NG HORMONE TSH BASIC 18452 [facility] METABOLIC 4 DIAGNOSTI DIAGNOSTI PANEL CS CS CALCIUM TOTAL CT THORAX 93371 [facility] W/O 4 [facility] CONTRAST INC INC MATERIAL 3D 64831 [facility] RENDERING 4 [facility] INC INC W/INTERP& POSTPROC DIFF WORK STATION ECHO 68558 [facility] TTHRC R-T 4 [facility] 2D INC INC W/WOM-MOD E COMPL SPEC&COLR D LIPID 92234 [facility] PANEL 4 DIAGNOSTI DIAGNOSTI CS CS BLOOD 56214 [facility] COUNT 4 DIAGNOSTI DIAGNOSTI COMPLETE CS CS AUTO&AUTO DIFRNTL WBC COMPREHEN 97884 [facility] SIVE 4 DIAGNOSTI DIAGNOSTI METABOLIC CS CS PANEL 25 71492 [facility] HYDROXY 4 DIAGNOSTI DIAGNOSTI INCLUDES [place] [address] [facility] THYROID 4 DIAGNOSTI DIAGNOSTI STIMULATI [place] [address] [facility] THYROID 3 [facility] STIMULATI INC INC NG HORMONE TSH HEPATITIS 66697 [facility] A 3 [facility] ANTIBODY INC INC HAAB BILIRUBIN 02473 [facility] MALONEYON DIRECT 3 [facility] INC INC HEPATITIS 83218 [facility] C 3 [facility] ANTIBODY INC INC PROTHROMB 79001 [facility] IN TIME 3 [facility] INC INC HEPATITIS 98853 [facility] Pereyra CORE 3 [facility] ANTIBODY INC INC HBCAB TOTAL HEPATITIS 28151 [facility] Pereyra SURF 3 [facility] [place] [address] K[facility] HEPATITIS 3 [facility] B INC INC SURFACE ANTIGEN THROMBOPL 65622 [facility] ASTIN 3 [facility] TIME INC INC PARTIAL PLASMA/WH OLE BLOOD BLOOD 17737 [facility] COUNT 3 [facility] COMPLETE INC INC AUTO&AUTO DIFRNTL WBC COMPREHEN 51802 [facility] B[facility] SIVE 3 [facility] METABOLIC INC INC PANEL COLLECTIO 79277 [facility] K[facility]AN N VENOUS 3 [facility] BLOOD INC INC VENIPUNCT URE COLLECTIO 40959 [facility] B[facility] N VENOUS 3 [facility] BLOOD INC INC VENIPUNCT URE CT THORAX 61407 [facility] B[facility] W/O 3 [facility] CONTRAST INC INC MATERIAL 3D 92532 [facility] RENDERING 3 [facility] INC INC W/INTERP& POSTPROC DIFF WORK STATION BLOOD 77722 [facility] COUNT 3 [facility] COMPLETE INC INC AUTO&AUTO DIFRNTL WBC BASIC 79770 [facility] METABOLIC 3 [facility] PANEL INC INC CALCIUM TOTAL DIAGNOSTI G0206 [facility] C 3 [facility] MAMMOGRAP INC INC HY INCL CAD WHEN PERF; UNI BLOOD 76247 [facility]ANLILI BECK COUNT 3 [facility] COMPLETE INC INC AUTO&AUTO DIFRNTL WBC COLLECTIO 13119 [facility]LILI BECK N VENOUS 3 [facility] BLOOD INC INC VENIPUNCT URE BASIC 43530 K[facility]AN K[facility]AN METABOLIC 3 [facility] PANEL INC INC CALCIUM TOTAL COMPUTER- 56653 [facility] AIDED 3 [facility] DETECTION INC INC SCREENING MAMMOGRAP HY SCREENING G0202 [facility] B[facility]K 3 [facility] MAMMOGRAP INC INC HY DANIS INCL CAD WHEN PERFORMD DIAGNOSTI G0206 [facility] [place] 3 MEDICAL RIMA MAMMOGRAP IMAGING HY INCL ASS CAD WHEN PERF; UNI CUL BACT 52128 [facility] XCPT 3 Y Y URINE [facility] BLOOD/STO OL AEROBIC ISOL CULTURE 48121 [facility] TUBERCLE/ 3 Y Y [facility] ACID-FAST BACILLI ANY ISOL SMR PRIM 32577 [facility] SRC 3 Y Y FLUORESCE [facility] NT&/AFS BCT FNGI PARASIT TISS DENISE 38981 [facility] SLIDE 3 Y Y [facility] SKN/HR/NL S FNGI/ECTO PARASIT IAADI 64927 [facility] PNEUMOCUS 3 Y Y [facility] CARINII IADNA 63859 [facility] RESPIRATR 3 Y Y Y PROBE & [facility] REV TRNSCR 3-5 [place] BRNCC 41590 [facility] BRUSHING/ 3 Y Y PROTECTED [facility] BRUSHINGS BRONCHOSC 47661 [facility] OPY 3 Y Y BRONCHIAL [facility] /ENDOBRNC L BX 1+ SITES BRONCHOSC 27057 [facility] OPY 3 MEDICAL NICK W/TRANSBR SERV ONCHIAL FOUNDATIO LUNG BX 1 LOBE IADNA NOS 61179 [facility] DIRECT 3 Y Y PROBE [facility] EACH ORGANISM SPECIAL 79264 [facility] STAIN 3 Y Y GROUP [address] [place] [address] MICROORGA NISMS I&R CULTURE 62855 [facility] 3 Y Y MOLD/YEAS [facility] T PRSMPTV OTH XCPT BLOOD SMR PRIM 28207 [facility] SRC 3 Y Y GRAM/GIEM [facility] SA STAIN BCT FUNGI/SARBJIT L VIRUS 70101 [facility] 3 Y Y E [facility] ID IMFLUOR STAIN EA INJECTION J2250 [facility] 3 Y Y [facility] HCL PER 1 MG INJECTION J3010 [facility] FENTANYL 3 Y Y CITRATE [facility] 0.1 MG CONCENTRA 55792 [facility] TION 3 Y Y INFECTIOU [facility] S AGENTS VIRUS 39903 [facility] TISS CUL 3 Y Y [facility] ON CYTOPATHI C EFFECT CYTP 27077 [facility] SLCTV 3 Y Y CELL [facility] ENHANCEME NT INTERPJ XCP[place] C/[place] [address] [facility] SURG 3 Y Y PATHOLOGY [facility] GROSS&JAXON ROSCOPIC EXAM BASIC 65834 [facility] METABOLIC 3 [facility] PANEL INC INC CALCIUM TOTAL COMPLEMEN 71174 [facility] T 3 [facility] FIXATION INC INC TESTS EACH ANTIGEN 3D 67147 [facility] RENDERING 3 [facility] INC INC W/INTERP& POSTPROC DIFF WORK STATION PRESSURIZ 03805 [facility] ED/NONPRE 3 [facility] SSURIZED INC INC INHALATIO N TREATMENT COLLECTIO 45350 [facility] N VENOUS 3 [facility] BLOOD INC INC VENIPUNCT URE CT THORAX 52088 [facility] W/O 3 [facility] CONTRAST INC INC MATERIAL GAS 41719 [facility] DILUT/WAS 3 [facility] HOUT LUNG INC INC VOL W/WO DISTRIB VENT&V BRNCDILAT 56506 [facility] RSPSE 3 [facility] SPMTRY INC INC PRE&POST- BRNCDILAT [place] BLOOD 79802 [facility] COUNT 3 [facility] COMPLETE INC INC AUTO&[place] [address] [place] [facility] DIFFUSING 3 MEDICAL JAM CAPACITY SERV FOUNDATIO BRNCDILAT 85267 [place] [facility] RSPSE 3 MEDICAL JAM SPMTRY SERV PRE&POST- FOUNDATIO BRNCDILAT [place] SPMTRY 39859 [place] [facility] W/VC 3 MEDICAL JAM EXPIRATOR SERV Y EDITH FOUNDATIO W/WO MXML VOL VNTJ GAS 55486 [facility] SILVEIRA DILUT/WAS 3 MEDICAL JAM HOUT LUNG SERV VOL W/WO FOUNDATIO DISTRIB VENT&V COLLECTIO 76219 TE WONG N VENOUS 2 BLOOD VENIPUNCT URE IIV 71391 TE WONG VACCINE 2 PRESERV FREE INCREASED AG CONTENT IM PPSV23 56656 TE WONG VACCINE 2 2 YRS OR OLDER FOR SUBQ/IM USE ADMINISTR G0009 TE WONG ATION OF 2 PNEUMOCOC TORO VACCINE ADMINISTR G0008 TE WONG ATION OF 2 [place] [address] [facility] DOHERTY DIFFUSING 2 PULMONARY MAT CAPACITY & CRITICAL BRNCDILAT 64451 [facility] RSPSE 2 PULMONARY MAT SPMTRY & PRE&POST- CRITICAL BRNCDILAT [place] RADIOLOGI 61222 [facility] C EXAM 2 PULMONARY MAT CHEST 2 & VIEWS CRITICAL FRONTAL&L ATERAL PLETHYSMO 13986 [facility] GRAPHY 2 PULMONARY MAT LUNG & VOLUMES CRITICAL W/WO AIRWAY RESIST 3D 47872 [place] [facility] RENDERING 2 MEDICAL RIMA IMAGING W/INTERP& ASS POSTPROC DIFF WORK STATION CT THORAX 69450 [place] [facility] 2 MEDICAL RIMA W/CONTRAS IMAGING T ASS MATERIAL COLLECTIO 96850 [facility] Fan VENOUS 2 [facility] BLOOD INC INC VENIPUNCT URE CREATININ 75172 [facility] E BLOOD 2 [place] [address] [facility] UREA 2 [facility] NITROGEN INC INC QUANTITAT ABY LOCM Q9967 [facility] B[facility]K [phone] 2 [facility] MG/ML INC INC IODINE CONCENTRA TION PER ML RADIOLOGI 52223 [place] [facility] C EXAM 2 MEDICAL RIMA CHEST 2 IMAGING VIEWS ASS FRONTAL&L ATERAL RADIOLOGI 70473 [facility] C EXAM 2 [facility] CHEST 2 INC INC VIEWS FRONTAL&L ATERAL COLLECTIO 28414 A Taco ALFARO OSWALD N VENOUS 2 [facility] BLOOD PSC VENIPUNCT URE LIPID 54302 A Taco ALFARO OSWALD PANEL 2 [facility] PSC BLOOD 15331 A Taco ALFARO OSWALD COUNT 2 [facility] COMPLETE PSC AUTO&AUTO DIFRNTL WBC TRANSFERA 89118 A Taco AKERS SE 2 [facility] ASPARTATE PSC AMINO AST SGOT TRANSFERA 81113 A [facility] AKERS SE 2 JUSTINE [facility] ALANINE PSC AMINO ALT SGPT ANKLE [id number] [facility] CONTROL 2 ORTHOSIS STIRRUP STYL RIGID PREFAB RADEX 46057 [place] [facility] 2 MEDICAL RIMA COMPLETE IMAGING MINIMUM 3 [facility] 6[address]80 [facility] DISCHARGE 0 Y OF ANT DAY [place] [facility] INTER T 30 MIN/< SBSQ [id number] [facility] 0 Y OF ANT CARE/DAY [place] 25 INTER MINUTES SBSQ 12335 [facility] 0 Y OF ANT CARE/DAY [place] 25 INTER MINUTES SBSQ 80822 [facility] 0 Y OF ANT CARE/DAY [place] 25 INTER MINUTES RADIOLOGI 70968 [place] [facility] C 0 MEDICAL EXAMINATI SERV ON [facility] [place] RADIOLOGI 39414 [place] [facility] MICHEL[facility] C 0 MEDICAL EXAMINATI SERV ON [facility] [place] SBSQ 28372 [facility] 0 Y OF ANT CARE/DAY [place] 25 INTER MINUTES RADIOLOGI 55257 [place] [facility] MIC[facility] C 0 MEDICAL EXAMINATI SERV ON [place] [place] SBSQ 77346 [facility] 0 MEDICAL VALENTIN CARE/DAY SERV 25 FOUNDATIO MINUTES RADEX 99486 [place] PANCHIT[place] ABDOMEN 1 0 MEDICAL ART SERV ANTEROPOS FOUNDATIO [place] RADIOLOGI 91100 [place] C 0 MEDICAL TORO EXAMINATI SERV ON [place] [facility] [place] SBSQ 91779 [place] [facility] 0 MEDICAL VALENTIN CARE/DAY SERV 35 FOUNDATIO MINUTES CRITICAL 60559 [place] [facility] 0 MEDICAL VALENTIN ILL/INJUR SERV ED FOUNDATIO PATIENT INIT 30-74 MIN RADIOLOGI 86100 [place] ATTILI C 0 MEDICAL ANI EXAMINATI SERV ON [place] [place] RADIOLOGI 72546 [place] [facility] C 0 MEDICAL EXAMINATI SERV ON [place] [facility] [place] CRITICAL 12360 [facility] 0 MEDICAL VALENTIN ILL/INJUR SERV ED FOUNDATIO PATIENT INIT 30-74 MIN SBSQ 31250 [place] [facility] 0 MEDICAL NICK CARE/DAY SERV 35 FOUNDATIO MINUTES RADIOLOGI 32043 [place] [facility] C 0 MEDICAL MK EXAMINATI SERV ON [place]ST [facility] [place] RADEX 75953 [place] [facility] ABDOMEN 1 0 MEDICAL MK SERV ANTEROPOS FOUNDATIO [place] RADEX 41220 [place] [facility] ABDOMEN 1 0 MEDICAL MK SERV ANTEROPOS FOUNDATIO TERIOR [place]IEW RADIOLOGI 63179 [place] [facility] C 0 MEDICAL MK EXAMINATI SERV ON [place]ST [place] [place] SBSQ 14773 [place] [facility] 0 MEDICAL NICK CARE/DAY SERV 35 FOUNDATIO MINUTES CRITICAL 37996 [place] [facility] 0 MEDICAL VALENTIN ILL/INJUR SERV ED FOUNDATIO PATIENT INIT 30-74 MIN RADIOLOGI 12723 [place] [facility] C 0 MEDICAL EXAMINATI SERV ON [place] [place] ECG 32010 [place] JERMAINE MARCO A ROUTINE 0 MEDICAL ECG SERV W/LEAST FOUNDATIO 12 LDS I&R ONLY ECG 94302 [place] [facility] C ROUTINE 0 MEDICAL ECG SERV W/LEAST FOUNDATIO 12 LDS I&R ONLY RADIOLOGI 67031 [place] [facility] MICHEL[facility] C 0 MEDICAL EXAMINATI SERV ON [place] [facility] CRITICAL 99961 [place] [facility] CARE 0 MEDICAL VALENTIN ILL/INJUR SERV ED FOUNDATIO PATIENT INIT 30-74 MIN BRNCHSC 96255 T[facility]DY DREWRADHA W/BRNCL 0 MEDICAL VALENTIN ALVEOLAR SERV [place] FOUNDATIO SPECIAL 03602 [facility] [place] STAIN 0 Y OF MAT GROUP 1 [place] [place] [facility] NISMS I&R CLOSED 3324 [facility] BIOPSY OF 0 Y Y [facility] CYTP 83578 [facility] [place] SLCTV 0 Y OF MAT CELL [facility] [place] [facility] NT INTERPJ XCPT C/V CONT 9672 [facility] INVASIVE 0 Y Y [facility] 96 CONSECUTI VE HRS/MORE CRITICAL 05766 [facility] SILVEIRA CARE 0 MEDICAL JAM ILL/INJUR SERV ED FOUNDATIO PATIENT ADDL 30 MIN CRITICAL 67632 [facility] CARE 0 MEDICAL JAM ILL/INJUR SERV ED FOUNDATIO PATIENT INIT 30-74 MIN RADIOLOGI 93365 T[facility]DY ELVA MICHELLE C 0 MEDICAL EXAMINATI SERV ON [facility] [place] AMB [id number] PETROLEUM PETROLEUM SERVICE 0 CONVNTION HELICOPTE HELICOPTE AIR SRVC RS INC RS INC TRANSPORT [address] Encounters Encounter Start End Date Code Location Performer Type Date EMERGENCY 91927 [facility] DEPT 7 7 PHYSICIAN VISIT S, PLLC HIGH SEVERITY& THREAT FUNCJ EMERGENCY 03011 [facility] 7 7 [facility] VISIT MODERATE SEVERITY HOSPITAL [facility] - 7 7 [facility] OUTPATIEN [facility] OFFICE 81783 TEDDY SILVEIRA OUTPATIEN 6 6 MEDICAL JAM T VISIT SERV 25 FOUNDATIO MINUTES [facility] KIRAN - 6 6 [facility] OUTPATIEN [facility] KIRAN - 6 6 [facility]IEN [facility] KIRAN - 6 6 [facility]PATI[facility] KIRAN - 6 6 [facility] KIRNA - 6 6 [facility]PATI[facility] KIRAN - 6 6 [facility] KIRAN - 5 5 [facility] OUTPATIEN [facility] EMERGENCY 60912 [facility] 5 5 PHYSICIAN DEPARTMEN S, [facility] T VISIT MODERATE SEVERITY EMERGENCY 44677 K[facility]AN 5 5 [facility] VISIT LIMITED/M INOR PROB [facility] KIRAN - 5 5 [facility] OUTPATIEN [facility] OFFICE 96814 TE JUDITH TE JUDITH [facility] 5 5 T VISIT 25 MINUTES [facility]OSPITAL [facility] - 5 5 [facility]EN [facility] KIRAN [facility] 5 5 [facility] KIRAN - 4 4 [facility] KIRAN - 4 4 [facility] KIRAN - 4 4 [facility] OUTPATIEN [facility] OFFICE 09295 TEDDY SILVEIRA OUTPATIEN 4 4 MEDICAL JAM T VISIT SERV 25 [facility] KIRAN - 4 4 [facility] KIRAN - 4 4 [facility] OUT[facility] OFFICE 58069 TEDDY RAOUL OUTPATIEN 3 3 MEDICAL JAM T VISIT SERV [facility] KIRAN - 3 3 [facility]EN [facility] KIRAN - 3 3 [facility]IRAN - 3 3 [facility] KIRAN - 3 3 [facility] - 3 3 [facility] OUTPATIEN INC T OFFICE 96726 TE WONG TE JUDITH OUTPATIEN 3 3 T VISIT 15 MINUTES OFFICE 76653 TEDDY ALEXISSILVEIRA OUTPATIEN 3 3 MEDICAL JAM T VISIT SERV 25 FOUNDATIO MINUTES [facility]OSPITAL [facility]ERS[facility] - 3 [facility] 3 3 [facility] OUTPATIEN INC T OFFICE 96244 TE WONG TE JUDITH OUTPATIEN 2 2 T VISIT 25 MINUTES OFFICE 99796 TE JUDITH TE JUDITH OUTPATIEN 2 2 T VISIT 15 MINUTES HOSPITAL K[facility]AN - 2 2 [facility] OUTPATIEN [facility] KIRAN - 2 2 [facility] OUTPATIEN INC T OFFICE 51557 A Taco CRAWFORD OUTPATIEN 2 2 [facility] KAR[facility] T VISIT PSC 15 MINUTES [facility]OSPITAL KIRAN - 2 2 [facility] OUTPATIEN INC T OFFICE 56087 A Taco AKERS OUTPATILALO 2 2 [facility] T VISIT PSC 25 MINUTES [facility]OSPITAL KIRAN - 2 2 [facility] OUTPATIEN INC T EMERGENCY 74743 KIRAN 2 2 [facility]PARTMEN [facility] T VISIT LOW/MODER SEVERITY OFFICE 74998 A Taco AKERS OUTPATILALO 2 2 [facility] T VISIT PSC 15 MINUTES HOSPITAL UNIVERSIT - 0 0 [facility] [employer]
--- OUTSIDE RECORDS SUMMARY | 2017-04-26 13:56 | External Medical Summary Rpt ---
Author Author , ARIC CORBETT Address Unknown Phone [email or web address] Care Team Providers Care Miller Head Wet Process Name Role Phone A Taco FLETCHER MD PSC, A Unavailable Unavailable Taco FLETCHER MD PSC ATTILI ANI, ATTILI Unavailable Unavailable ANI [facility] Un[facility], [facility] BEINEKE CHRISTIANO, BEINEKE Unavailable Unavailable CHRISTIANO BENSADOUN NICK, Unavailable Unavailable BENSADOUN NICK LARRY, LARRY Unavailable Unavailable LARRY ALL, LARRY ALL Unavailable Unavailable CHAND JAXON, CHAND Unavailable Unavailable JAXON [facility], Unavailable Unavailable [facility], [facility] TE WONG, TE WONG Unavailable Unavailable TE WONG, TE WONG Unavailable Unavailable [facility] Un[facility]available [facility] Unavailable Unavailable [facility] Unavailable Unavailable INC, [facility] Unavailable Unavailable HOSPITAL P, [facility] JERMAINE MARCO A, JERMAINE MARCO A Unavailable Unavailable [facility] RADHA VALENTIN, Unavailable Unavailable RADHA VALENTIN ELVA MICHELLE, ELVA MICHELLE Unavailable Unavailable [facility] C, CARROLL C Unavailable Unavailable [facility] DIANNE ROSA, DIANNE ROSA Unavailable Unavailable PANCHITO ART, PANCHITO Unavailable Unavailable ART WILMA, JR. ANT, WILMA, Unavailable Unavailable JR. ANT RUPA MAR, RUPA MAR Unavailable Unavailable SILVEIRA JAM, Unavailable Unavailable SILVEIRA JAM DOHERTY MAT, Unavailable Unavailable DOHERTY MAT DOMINIC OSWALD, DOMINIC OSWALD Unavailable Unavailable [facility], [facility], [facility] Unavailable Unavailable INC, [facility] PULMANO OTRO, PULMANO Unavailable Unavailable TORO PURDOM MAT, PURDOM [...] Unavailable ANG DONAHUE MK, DONAHUE Unavailable Unavailable [facility], Unavailable Unavailable [facility] Unavailable Unavailable [place] [facility] Purpose Continuity of Care Document - 06-03-2010 through 2016 Problems Code Diagnosis DOS Provider Status I10 ESSENTIAL 03-06-2017 [facility]YPERTEN[facility] N J449 CHRONIC 03-06-2017 [facility] PULMONARY INC DISEASE UNS K219 GASTRO-ESOP 03-06-2017 [facility] H REFLUX [facility] DISEASE INC WITHOUT ESOPHAGITIS M160 BILATERAL 03-06-2017 [facility] OSTEOARTHRI [facility] TIS OF HIP M1611 UNILATERAL 03-06-2017 [facility] TIS RIGHT HIP M1612 UNILATERAL 03-06-2017 [facility] OSTEOARTHRI IMAGING [facility] TIS LEFT HIP V75202 PAIN IN 03-06-2017 [place] RIGHT [facility]IP [facility] U84817 PAIN IN 03-06-2017 [place] LEFT [facility]IP [facility] Z720 TOBACCO USE 03-06-2017 [facility] INC D500 IRON 07-28-2016 [facility] DEFICIENCY SERV ANEMIA SEC [facility]OUNDATION TO BLOOD LOSS CHRONIC Z1231 ENCOUNTER 07-12-2016 [place] SCRE[facility]ING [facility]ICAL MAMMO MALIG IMAGING ASS NEOPLASM BREAST Q73601 ENCOUNTER 07-12-2016 [place] FOR [facility]ICAL SCREENING IMAGING ASS FOR OSTEOPOROSI S Z780 ASYMPTOMATI 07-12-2016 [place] C MEDICAL MENOPAUSAL IMAGING ASS STATE E538 DEFICIENCY 07-08-2016 [facility] OF OTHER [facility] SPECIFIED B INC GROUP VITAMINS E7800 PURE 07-08-2016 [facility] HYPERCHOLES [facility] TEROLEMIA INC UNSPECIFIED L509 URTICARIA 07-08-2016 [facility]NSPECIFIED [facility] INC R945 ABNORMAL 07-08-2016 [facility] RESULTS OF [facility] LIVER INC FUNCTION STUDIES 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-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 [place] 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 ASS ANGINA PECTORIS R911 SOLITARY 12-19-2015 [facility] PULMONARY [facility] NODULE INC R918 OTHER 12-19-2015 [place] NONSPECIFIC MEDICAL ABNORMAL IMAGING ASS FINDING OF LUNG FIELD J439 EMPHYSEMA 12-17-2015 [facility] UNSPECIFIED [facility] INC K828 OTHER 11-28-2015 [place] SPECIFIED MEDICAL DISEASES OF IMAGING ASS GALLBLADDER L299 PRURITUS 11-28-2015 [facility] UNSPECIFIED [facility] INC R7989 OTHER SPEC 11-28-2015 [place] ABNORMAL MEDICAL FINDINGS IMAGING ASS BLOOD CHEMISTRY J069 ACUTE UPPER 09-11-2015 [facility] INFECTION UNSPECIFIED 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 AGE-RELATED 08-29-2015 [facility] BILATERAL 4928 OTHER 06-06-2015 [facility] EMPHYSEMA [facility] 77017 OTHER 06-06-2015 [place] DISEASES OF MEDICAL LUNG NOT IMAGING ASS ELSEWHERE CLASSIFIED 95999 OTHER 06-06-2015 [facility] NONSPECIFIC [facility] ABNORMAL INC FINDING OF LUNG FIELD 2689 UNSPECIFIED 02-28-2015 [facility] DEFICIENCY INCORPORAT 2724 OTHER AND 02-28-2015 [facility] UNSPECIFIED DIAGNOSTICS INCORPORAT HYPERLIPIDE RAY 4019 UNSPECIFIED 02-28-2015 [facility] ESSENTIAL [facility] HYPERTENSIO INCORPORAT N 496 CHRONIC 02-28-2015 TE WONG AIRWAY OBSTRUCTION NEC 76130 ESOPHAGEAL 02-28-2015 TE WONG REFLUX 7242 LUMBAGO 02-28-2015 TE WONG 30351 OBSTRUCTIVE 12-11-2014 [facility] CHRONIC [facility] BRONCHITIS INC WITHOUT EXACERBAT V0481 NEED 06-21-2014 TE [facility] PROPHYLACTI C VACCINATION &INOCULATIO N FLU V7612 OTHER 06-18-2014 [facility] SCREENING [facility] MAMMOGRAM INC 4919 UNSPECIFIED 05-28-2014 [facility] CHRONIC [facility] BRONCHITIS INC V5869 LONG-TERM 05-22-2014 [facility] (CURRENT) [facility] USE OF INC OTHER MEDICATIONS 7906 OTHER 01-22-2014 [facility] ABNORMAL DIAGNOSTICS BLOOD CHEMISTRY 96316 UNSPEC 01-02-2014 [place] [facility] HISTOPLASMO SERV SIS WITHOUT FOUNDATIO MENTION MANIFEST 4293 CARDIOMEGAL 11-02-2013 [facility] P 66883 HISTOPLASMA 05-16-2013 [place] [facility] CAPSULATUM SERV PNEUMONIA FOUNDATIO 2449 UNSPECIFIED 05-16-2013 [facility] HYPOTHYROID INC ISM 15722 UNSPECIFIED 01-12-2013 [place] ABNORMAL [facility]ICAL MAMMOGRAM IMAGING ASS 68881 UNSPECIFIED 01-03-2013 [facility] HISTOPLASMO INC SIS PNEUMONIA 59978 OTHER 12-22-2012 [place] SPECIFIED MEDICAL DISORDERS IMAGING ASS OF BREAST V163 FAMILY 12-22-2012 [place] HISTORY OF MEDICAL MALIGNANT IMAGING ASS NEOPLASM OF BREAST 66674 INCONCLUSIV 12-13-2012 [place] E MAMMOGRAM [facility] 2722 MIXED 12-04-2012 TE W[facility] HYPERLIPIDE RAY 4439 UNSPECIFIED 12-04-2012 TE [facility] PERIPHERAL VASCULAR DISEASE 486 PNEUMONIA, 10-24-2012 [facility] ORGANISM SERV UNSPECIFIED FOUNDATIO 5130 ABSCESS OF 10-24-2012 [facility] LUNG SERV [facility] 515 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 5183 PULMONARY 10-24-2012 [facility]ICAL EOSINOPHILI SERV A FOUNDATIO 5110 PLEURISY 10-10-2012 [place] WITHOUT MEDICAL MENTION IMAGING ASS EFFUS/[place] [address] SHORTNESS 10-10-2012 [facility] OF BREATH [facility] INC V0382 NEED PROPH 07-21-2012 TE [facility] VACCINATION AGAINST STREP PNEUMONE 7862 COUGH 05-19-2012 [facility] 4920 EMPHYSEMATO 03-03-2012 [place] US BLEB [facility]ICAL IM[facility]ING ASS 94425 CHEST PAIN 02-25-2012 [facility] UNSPECIFIED [facility] INC 17384 OTHER CHEST 02-23-2012 A Taco FLETCHER PAIN PSC 4011 ESSENTIAL 01-28-2012 A Taco FLETCHER HYPERTENSIO PSC N, BENIGN 18025 UNSPECIFIED 01-02-2012 [facility] OF ANKLE SPRAIN AND STRAIN 10304 SWELLING OF 12-31-2011 [facility] E8889 UNSPECIFIED 12-31-2011 [facility] 4619 ACUTE 10-28-2011 A Taco FLETCHER SINUSITISMD PSC UNSPECIFIED 4829 UNSPECIFIED 06-16-2010 [facility] PNEUMONIA INTER 86193 ACUTE 06-16-2010 [facility] FAILURE INTER 514 PULMONARY 06-11-2010 [facility] CONGESTION SERV AND [facility] HYPOSTASIS 5180 PULMONARY 06-11-2010 [facility] COLLAPSE SERV [facility] 94691 ABDOMINAL 06-11-2010 [facility] PAIN RIGHT SERV LOWER FOUND[facility] QUADRANT 80061 ACUTE AND 06-06-2010 [facility] CHRONIC SERV RESPIRATORY [facility] FAILURE 7931 NONSPEC 06-06-2010 [facility] FIND RAD SERV OTH EXAM [facility] BODY STRUCT LUNG FIELD V554 ATTN OTHER 06-06-2010 [facility] ARTIFICIAL SERV OPENING FOUND[facility] DIGESTIVE TRACT 64378 ATRIAL 06-04-2010 [facility] FIBRILLATIO SERV N FOUNDATIO 4660 ACUTE 06-04-2010 [facility] 0389 UNSPECIFIED 06-03-2010 [facility] 4589 UNSPECIFIED 06-03-2010 [facility] HYPOTENSION 481 PNEUMOCOCCA 06-03-2010 [facility] L PNEUMONIA SERV FOUNDATIO 5185 PULMONARY 06-03-2010 [facility] INSUFFICIEN SERV CY FOLLOW FOUNDATIO TRAUMA & SURGERY 38118 SEPTIC 06-03-2010 [facility] 56015 VENTILATOR 06-03-2010 [facility] PNEUMONIA V550 ATTENTION 06-03-2010 [facility] TO SERV TRACHEOSTOM FOUNDATIO Y Immunization Name Date Rout CVX Reac Dose Comm Prov Is Faci e tion ent ider Refu lity Give sed n PPSV 11-0 33 JAYSON No JAYSON 23 9-20 S S VACC 12 JUDITH INE 2 YRS OR JUDITH OLDE R FOR SUBQ /IM USE IIV 11-0 135 JAYSON No JAYSON VACC 9-20 S S INE 12 JUDITH PRES ERV FREE JUDITH INCR EASE D AG CONT ENT IM Procedures Procedure DOS Code Location Performer Comment RADEX HIP 69874 [place] LARRY 7 MEDICAL UNILATERA IMAGING L WITH ASS PELVIS 2-3 VIEWS THERAPEUT 93243 [facility] IC 7 [facility] PROPHYLAC INC INC TIC/DX INJECTION SUBQ/IM COMPUTER- 70188 [facility] AIDED 6 MEDICAL CHRISTIANO DETECTION IMAGING ASS SCREENING MAMMOGRAP HY SCREENING G0202 [facility] 6 MEDICAL CHRISTIANO MAMMOGRAP IMAGING HY DANIS ASS INCL CAD WHEN PERFORMD DXA BONE 84037 [facility] 6 MEDICAL CHRISTIANO STUDY 1/> IMAGING SITES ASS AXIAL SKEL COLLECTIO 75430 [facility] N VENOUS 6 [facility] BLOOD INC INC VENIPUNCT URE LIPID 92120 [facility] PANEL 6 [facility] INC INC BLOOD 52988 [facility] COUNT 6 [facility] COMPLETE INC INC AUTO&[place] [address] [facility] B[facility] THYROID 6 [facility] STIMULATI INC INC NG HORMONE TSH CYANOCOBA 83936 [facility] B[facility] ANAI 6 [facility] VITAMIN INC INC B-12 COMPREHEN 74615 [facility] SIVE 6 [facility] METABOLIC INC INC PANEL CT THORAX 83524 YOHANA LARRY ALL W/O 6 MEDICAL CONTRAST IMAGING MATERIAL ASS GAS 99566 [facility] MALONEYON DILUT/WAS 6 [facility] HOUT LUNG INC INC VOL W/[place] DISTRIB VENT&[place] [address] [facility] DIFFUSING 6 [facility] CAPACITY INC INC NONINVASI 89732 [facility] VE 6 [facility] EAR/PULSE INC INC OXIMETRY MULTIPLE DETER BRNCDILAT 71950 [facility] RSPSE 6 [facility] SPMTRY INC INC PRE&[place] [address] YOHANA LARRY ALL ABDOMINAL 6 MEDICAL REAL IMAGING TIME ASS W/IMAGE LIMITED BLOOD 34605 [facility] COUNT 6 [facility] COMPLETE INC INC AUTO&[place] [address] [facility] B[facility] THYROID 6 [facility] STIMULATI INC INC NG HORMONE TSH COLLECTIO 59046 [facility] N VENOUS 6 [facility] BLOOD INC INC VENIPUNCT URE COMPREHEN 25752 [facility] SIVE 6 [facility] METABOLIC INC INC PANEL DETERMINA 08181 [place] [facility] TION 5 VISION ANG REFRACTIV CENTER [facility] OPHTH 48066 [place] [facility] MEDICAL 5 VISION ANG XM&EVAL CENTER [facility] PT 1/> VST CT THORAX 52164 YOHANA LARRY ALL W/O 5 MEDICAL CONTRAST IMAGING MATERIAL ASS COLLECTIO 82563 TE W[facility] N VENOUS 5 [place] [address] DIAPK [facility] THYROID 5 DIAGNOSTI DIAGNOSTI STIMULATI CS CS NG INCORPORA INCORPORA HORMONE T T TSH BLOOD 63748 [facility] COUNT 5 DIAGNOSTI DIAGNOSTI COMPLETE CS CS AUTO&AUTO INCORPORA INCORPORA DIFRNTL T T WBC LIPID 26515 [facility] PANEL 5 DIAGNOSTI DIAGNOSTI CS CS INCORPORA INCORPORA T T COMPREHEN 20518 [facility] SIVE 5 DIAGNOSTI DIAGNOSTI METABOLIC CS CS PANEL INCORPORA INCORPORA T T 25 58346 [facility] HYDROXY 5 DIAGNOSTI DIAGNOSTI INCLUDES CS CS FRACTIONS INCORPORA INCORPORA IF T T PERFORMED PUL G0424 [facility] REHAB 5 MEM [...] HR PER SESS TO 2 PER DAY INFLUENZA Q2038 TE TIWARI JUDITH VACC 4 SPLIT VIRUS 3 YRS & > IM FLUZONE ADMINISTR G0008 TE WONG ATION OF 4 INFLUENZA VIRUS VACCINE [facility]- 36505 [facility] AIDED 4 [facility] DETECTION INC INC SCREENING MAMMOGRAP HY SCREENING G0202 [facility] B[facility]K 4 [facility] MAMMOGRAP INC INC HY DANIS INCL CAD WHEN PERFORMD BRNCDILAT 41179 [facility] RSPSE 4 [facility] SPMTRY INC INC PRE&POST- BRNCDILAT ADMN NONINVASI 80360 [facility] VE 4 [facility] EAR/PULSE [place] [address] [facility] B[facility] DIFFUSING 4 [facility] CAPACITY INC INC GAS 67745 [facility] DILUT/WAS 4 [facility] HOUT LUNG INC INC VOL W/WO DISTRIB VENT&V COLLECTIO 01904 [facility] N VENOUS 4 [facility] [place]LOOD [place] [address] [facility] THYROID 4 [facility] STIMULATI INC INC NG HORMONE TSH BLOOD 59560 [facility] COUNT 4 [facility] COMPLETE INC INC AUTO&AUTO DIFRNTL WBC COMPREHEN 96010 [facility] SIVE 4 [facility] METABOLIC INC INC PANEL BASIC 14528 [facility] METABOLIC 4 DIAGNOSTI DIAGNOSTI PANEL CS CS CALCIUM TOTAL CT THORAX 99678 [place] CON[facility] W/O 4 MEDICAL RIMA CONTRAST IMAGING MATERIAL ASS 3D 24059 [place] [facility] RENDERING 4 MEDICAL RIMA IMAGING W/INTERP& ASS POSTPROC DIFF WORK STATION ECHO 04141 [facility] TTHRC R-T 4 [facility] 2D INC INC W/WOM-MOD E COMPL SPEC&[place] [address] [facility] THYROID 4 DIAGNOSTI DIAGNOSTI STIMULATI CS CS NG HORMONE TSH BLOOD 14233 [facility] COUNT 4 DIAGNOSTI DIAGNOSTI COMPLETE CS CS AUTO&AUTO DIFRNTL WBC LIPID 53746 [facility] PANEL 4 DIAGNOSTI DIAGNOSTI CS CS 25 29605 [facility] HYDROXY 4 DIAGNOSTI DIAGNOSTI INCLUDES CS CS FRACTIONS IF PERFORMED COMPREHEN 31427 [facility] SIVE 4 DIAGNOSTI DIAGNOSTI METABOLIC CS CS PANEL COMPREHEN 66731 [facility] SIVE 3 [facility] METABOLIC INC INC PANEL HEPATITIS 12197 [facility] A 3 [facility] ANTIBODY INC INC HAAB BILIRUBIN 70114 [facility] DIRECT 3 [place] [address] [facility] HEPATITIS 3 [facility] B INC INC SURFACE ANTIGEN PROTHROMB 86015 [facility] IN TIME 3 [facility] INC INC HEPATITIS 44364 [facility] Pereyra CORE 3 [facility] ANTIBODY INC INC HBCAB TOTAL HEPATITIS 87689 [facility] Pereyra SURF 3 [facility] ANTIBODY INC INC HBSAB HEPATITIS 11774 [facility] C 3 [facility] ANTIBODY INC INC BLOOD 92608 [facility] COUNT 3 [facility] COMPLETE INC INC AUTO&[place] [address] [facility] THYROID 3 [facility] STIMULATI INC INC NG HORMONE TSH THROMBOPL 82339 [facility] ASTIN 3 [facility] TIME INC INC PARTIAL PLASMA/WH OLE BLOOD COLLECTIO 94249 [facility] N VENOUS 3 [facility] BLOOD INC INC VENIPUNCT URE COLLECTIO 63641 [facility] BEKC N VENOUS 3 [facility] BLOOD INC INC VENIPUNCT URE 3D 39500 [facility] RENDERING 3 [facility] INC INC W/INTERP& POSTPROC DIFF WORK STATION CT THORAX 11391 [facility] W/O 3 [facility] CONTRAST INC INC MATERIAL BLOOD 17410 [facility] COUNT 3 [facility] COMPLETE INC INC AUTO&AUTO DIFRNTL WBC BASIC 83023 [facility] METABOLIC 3 [facility] PANEL INC INC CALCIUM TOTAL DIAGNOSTI G0206 YOHANA [place] 3 MEDICAL RIMA MAMMOGRAP IMAGING HY INCL ASS CAD WHEN PERF; UNI BASIC 77964 [facility] METABOLIC 3 [facility] PANEL INC INC CALCIUM TOTAL BLOOD 62238 [facility] COUNT 3 [facility] COMPLETE INC INC AUTO&AUTO DIFRNTL WBC COLLECTIO 15200 [facility] N VENOUS 3 [facility] BLOOD INC INC VENIPUNCT URE SCREENING G0202 [place] [facility] 3 MEDICAL RIMA MAMMOGRAP IMAGING HY DANIS ASS INCL CAD WHEN PERFORMD COMPUTER- 89986 [place] [facility] AIDED 3 MEDICAL RIMA DETECTION IMAGING ASS SCREENING MAMMOGRAP HY DIAGNOSTI G[facility]6 [facility] 3 MEDICAL RIMA MAMMOGRAP IMAGING HY INCL ASS CAD WHEN PERF; UNI CONCENTRA 44885 [facility] TION 3 Y Y INFECTIOU [facility] S AGENTS VIRUS 68986 [facility] TISS CUL 3 [facility] ON CYTOPATHI C EFFECT CYTP 50912 [facility] SLCTV 3 Y Y CELL [facility] ENHANCEME NT INTERP[place] XCP[place] C/[place] [address] TEDDY DEAN ROSA SURG 3 MEDICAL PATHOLOGY SERV FOUNDATIO GROSS&JAXON ROSCOPIC EXAM BRONCHOSC 88644 [facility] OPY 3 Y Y BRONCHIAL [facility] /ENDOBRNC L BX 1+ SITES BRONCHOSC 63795 TEDDY LYLASADOUN OPY 3 MEDICAL NICK W/TRANSBR SERV ONCHIAL FOUNDATIO LUNG BX 1 LOBE CULTURE 36522 [facility] FNGI 3 Y Y MOLD/YEAS [facility] T PRSMPTV OTH XCPT BLOOD IADNA NOS 02546 [facility] DIRECT 3 Y Y PROBE [facility] EACH ORGANISM SPECIAL 43468 TEDDY DAEN ROSA STAIN 3 MEDICAL GROUP 1 SERV MICROORGA FOUNDATIO NISMS I&R SMR PRIM 50255 [facility] SRC 3 Y Y GRAM/GIEM [facility] SA STAIN BCT FUNGI/SARBJIT L VIRUS 45853 [facility] CENTRIFUG 3 Y Y E ENHNCD [facility] ID IMFLUOR STAIN EA INJECTION J2250 [facility] 3 Y Y MIDAZOLAM [facility] HCL PER 1 MG INJECTION J3010 [facility] FENTANYL 3 Y Y CITRATE [facility] 0.1 MG CUL BACT 31516 [facility] XCPT 3 Y Y URINE [facility] BLOOD/STO OL AEROBIC ISOL CULTURE 27208 [facility] TUBERCLE/ 3 Y Y [facility] ACID-FAST BACILLI ANY ISOL SMR PRIM 02887 [facility] SRC 3 Y Y [facility] NT&/AFS BCT FNGI PARASIT TISS DENISE 03553 [facility] SLIDE 3 Y Y [facility] SKN/HR/NL S FNGI/ECTO PARASIT IAADI 25919 [facility] PNEUMOCUS 3 [facility] CARINII IADNA 14612 [facility] RESPIRATR 3 Y Y Y PROBE & [facility] REV TRNSCR 3-5 [facility] 19859 [facility] BRUSHING/ 3 Y Y [facility] BR[facility] THORAX 23324 [place] [facility] W/O 3 MEDICAL RIMA CONTRAST IMAGING MATERIAL ASS 3D 55983 [place] [facility] RENDERING 3 MEDICAL RIMA IMAGING W/INTERP& ASS POSTPROC DIFF WORK STATION COLLECTIO 95249 [facility] N VENOUS 3 [facility] BLOOD INC INC VENIPUNCT URE GAS 21085 [facility] DILUT/WAS 3 [facility] HOUT LUNG INC INC VOL W/WO DISTRIB VENT&V PRESSURIZ 64619 [facility] ED/NONPRE 3 [facility] SSURIZED INC INC INHALATIO N TREATMENT BRNCDILAT 83997 [facility] RSPSE 3 [facility] SPMTRY INC INC PRE&POST- BRNCDILAT ADMN BLOOD 27037 [facility] COUNT 3 [facility] COMPLETE INC INC AUTO&AUTO DIFRNTL WBC BASIC 19120 [facility] METABOLIC 3 [facility] PANEL INC INC CALCIUM TOTAL COMPLEMEN 29994 [facility] T 3 [facility] FIXATION INC INC TESTS EACH ANTIGEN SPMTRY 03372 TEDDY SILVEIRA W/VC 3 MEDICAL JAM EXPIRATOR SERV Y EDITH FOUNDATIO W/[place] [address] TEDDY SILVEIRA DIFFUSING 3 MEDICAL JAM CAPACITY SERV FOUNDATIO BRNCDILAT 04931 TEDDY SILVEIRA RSPSE 3 MEDICAL JAM SPMTRY SERV PRE&POST- FOUNDATIO BRNCDILAT ADMN GAS 53612 TEDDY SILVEIRA DILUT/WAS 3 MEDICAL JAM HOUT LUNG SERV VOL W/WO FOUNDATIO DISTRIB VENT&V IIV 13689 TE [facility] VACCINE 2 PRESERV FREE INCREASED AG CONTENT IM COLLECTIO 63174 TE [facility] N VENOUS 2 BLOOD VENIPUNCT URE PPSV23 38930 TE WONG VACCINE 2 2 YRS OR OLDER FOR SUBQ/IM USE ADMINISTR G0009 TE [facility] ATION OF 2 PNEUMOCOC TORO VACCINE ADMINISTR G0008 TE WONG ATION OF 2 [place] [address] [facility] DIFFUSING 2 PULMONARY MAT CAPACITY & CRITICAL BRNCDILAT 17725 [facility] RSPSE 2 PULMONARY MAT SPMTRY & PRE&POST- CRITICAL BRNCDILAT ADMN RADIOLOGI 09467 [facility] C EXAM 2 PULMONARY MAT CHEST 2 & VIEWS CRITICAL FRONTAL&L ATERAL PLETHYSMO 62350 [facility] GRAPHY 2 PULMONARY MAT LUNG & VOLUMES CRITICAL W/WO AIRWAY RESIST COLLECTIO 38692 [facility] N VENOUS 2 [facility] BLOOD INC INC VENIPUNCT URE 3D 33749 [facility] RENDERING 2 [facility] INC INC W/INTERP& POSTPROC DIFF WORK STATION CT THORAX 77146 [facility] W/[place] [address] [facility] UREA 2 [facility] NITROGEN INC INC QUANTITAT ABY CREATININ 19258 [facility] E BLOOD 2 [facility] INC INC LOCM Q9967 [facility] 300-399 2 [facility] MG/ML INC INC IODINE CONCENTRA TION PER ML RADIOLOGI 03309 [facility] C EXAM 2 [facility] CHEST 2 INC INC VIEWS FRONTAL&L ATERAL RADIOLOGI 27449 [place] [facility] EXAM 2 MED[facility] RIMA CHEST 2 IMAGING VIEWS ASS FRONTAL&L ATERAL COLLECTIO 96627 A Taco AKERS N VENOUS 2 [facility] BLOOD PSC VENIPUNCT URE TRANSFERA 78839 A Taco ALFARO OSWALD SE 2 [facility] ASPARTATE PSC AMINO AST SGOT TRANSFERA 07263 A [facility] ALFARO [facility] SE 2 [facility] ALANINE PSC AMINO ALT SGPT LIPID 22302 A [facility] ALFARO OSWALD PANEL 2 [facility] PSC BLOOD 34375 A [facility] ALF[facility] OSWAL[facility] COUNT 2 [facility] COMPLETE PSC AUTO&AUTO DIFRNTL WBC ANKLE L4350 [facility] CONTROL 2 ORTHOSIS STIRRUP STYL RIGID PREFAB RADEX 07231 [place] [facility] ANKLE 2 MEDICAL RIMA COMPLETE IMAGING MINIMUM 3 ASS VIEWS HOSPITAL 90687 [facility] DISCHARGE 0 Y OF ANT DAY [place] MANAGEMEN INTER T 30 MIN/< SBSQ 06658 [facility] 0 Y OF ANT CARE/DAY [place] 25 INTER MINUTES SBSQ 81439 [facility] 0 Y OF ANT CARE/DAY [place] 25 INTER MINUTES SBSQ 46542 [facility] 0 Y OF ANT CARE/DAY [place] 25 INTER MINUTES RADIOLOGI 20787 [facility] C 0 MEDICAL EXAMINATI SERV ON CHEST FOUNDATIO [place] FR[place]AL RADIOLOGI 67273 [place] [facility] 0 MEDICAL EXAMINATI SERV ON CHEST FOUNDATIO [place] FRONTAL SBSQ 92505 [facility] 0 Y OF ANT CARE/DAY [place] 25 INTER MINUTES SBSQ 02051 [facility] 0 MEDICAL VALENTIN CARE/DAY SERV 25 FOUNDATIO MINUTES RADIOLOGI 76147 [place] [facility] 0 MEDICAL EXAMINATI SERV ON CHEST FOUNDATIO [place] RADEX 88704 [place] [facility]OM[facility] 1 0 MEDICAL ART SERV ANTEROPOS FOUNDATIO TERIOR [place]IEW SBSQ 75401 [place] [facility] 0 MEDICAL VALENTIN CARE/DAY SERV 35 FOUNDATIO MINUTES RADIOLOGI 19142 [place] [facility] 0 MEDICAL TORO EXAMINATI SERV ON CHEST FOUNDATIO [place] RADIOLOGI 48726 [place] [facility] C 0 MEDICAL ANI EXAMINATI SERV ON CHEST FOUNDATIO [place] CRITICAL 20060 [place] [facility] 0 MEDICAL VALENTIN ILL/INJUR SERV ED FOUNDATIO PATIENT INIT 30-74 MIN CRITICAL 25585 [place] [facility] 0 MEDICAL VALENTIN ILL/INJUR SERV ED FOUNDATIO PATIENT INIT 30-74 MIN RADIOLOGI 26998 [place] EL[facility] MICHELLE C 0 MEDICAL EXAMINATI SERV ON CHEST FOUNDATIO SINGLE [place] FRONTAL RADIOLOGI 40980 [place] DONAHUE C 0 MEDICAL MK EXAMINATI SERV ON CHEST FOUNDATIO SINGLE VIEW FRONTAL SBSQ 51167 [facility] 0 MEDICAL NICK CARE/DAY SERV 35 FOUNDATIO MINUTES RADEX 31621 [place] DON[place] ABDOMEN 1 0 MEDICAL MK SERV ANTEROPOS FOUNDATIO TERIOR VIEW RADEX 65240 [place] ABDOMEN 1 0 MEDICAL MK SERV ANTEROPOS FOUNDATIO TERIOR VIEW SBSQ 76735 [facility] 0 MEDICAL NICK CARE/DAY SERV 35 FOUNDATIO MINUTES RADIOLOGI 99514 [place] DON[place]UE C 0 MEDICAL MK EXAMINATI SERV ON CHEST FOUNDATIO S[place] FRONTAL RADIOLOGI 64179 [place] CHAND C 0 MEDICAL JAXON EXAMINATI SERV ON CHEST FOUNDATIO S[place] FRONTAL CRITICAL 91099 [place] [facility] 0 MEDICAL VALENTIN ILL/INJUR SERV ED FOUNDATIO PATIENT INIT 30-74 MIN ECG 18629 [place] JERMAINE MARCO A ROUTINE 0 MEDICAL ECG SERV W/LEAST FOUNDATIO 12 LDS I&R ONLY ECG 89164 [place] CARROLL C ROUTINE 0 MEDICAL ECG SERV W/LEAST FOUNDATIO 12 LDS I&R ONLY CRITICAL 32931 [place] [facility] 0 MEDICAL VALENTIN ILL/INJUR SERV ED FOUNDATIO PATIENT INIT 30-74 MIN BRNCC 29648 [place] [facility] W/BRNCL 0 MEDICAL VALENTIN ALVEOLAR SERV LAVAGE FOUNDATIO RADIOLOGI 25200 [place] EL[place] MICHELLE C 0 MEDICAL EXAMINATI SERV ON CHEST FOUNDATIO SINGLE VIEW FRONTAL CLOSED 3324 [facility] STATION BIOPSY OF 0 Y Y [facility] CYTP 29983 [facility] SLCTV 0 Y OF MAT CELL [place] [facility] NT INTERPJ XCPT C/V SPECIAL 18857 [facility] ST[facility] 0 Y OF MAT GROUP 1 [place] [facility] NISMS I&R CONT 9672 [facility] STATION INVASIVE 0 Y [facility] CONSECUTI VE HRS/MORE RADIOLOGI 01028 [place] EL[place] MICHELLE C 0 MEDICAL EXAMINATI SERV ON CHEST FOUNDATIO S[place] FRONTAL CRITICAL 64873 [facility] C[facility] 0 MEDICAL JAM ILL/INJUR SERV ED FOUNDATIO PATIENT INIT 30-74 MIN AMB [id number] [facility] PETROLEUM SERVICE 0 CONVNTION HELICOPTE HELICOPTE AIR SRVC RS INC INC TRANSPORT [address] CRITICAL 34766 [facility] SIL[facility] CARE 0 MEDICAL JAM ILL/INJUR SERV ED FOUNDATIO PATIENT ADDL 30 MIN Encounters Encounter Start End Date Code Location Performer Type Date EMERGENCY 42111 [facility]AN 7 7 [facility] T VISIT MODERATE SEVERITY EMERGENCY 28756 [facility] DEPT 7 7 PHYSICIAN VISIT S, [facility] HIGH SEVERITY& [facility] KIRAN - 7 7 [facility] OUTPATIEN [facility] OFFICE 66783 TEDDY RAOUL OUTPATIEN 6 6 MEDICAL JAM T VISIT SERV [address] [facility] KIRAN - 6 6 [facility] OUTPATIEN [facility] KIRAN - 6 6 [facility] OUT[facility] KIRAN - 6 6 [facility] - 6 6 [facility] KIRAN - 6 6 [facility]PATI[facility] KIRAN - 6 6 [facility] - 5 5 [facility]PATIEN [facility] EMERGENCY 03720 KIRAN 5 5 [facility] T VISIT LIMITED/M INOR PROB EMERGENCY 93017 [facility] 5 5 PHYSICIAN DEPARTMEN S, [facility] T VISIT MODERATE SEVERITY HOSPITAL KIRAN - 5 5 [facility] OUTPATIEN [facility] OFFICE 63864 TE [facility] 5 5 T VISIT 25 MINUTES HOSPITAL KIRAN - 5 5 [facility]IEN [facility] KIRAN - 5 5 [facility] OUTPATIEN [facility] KIRAN - 4 4 [facility]PATIEN [facility] KIRAN - 4 4 [facility]PATIEN [facility] KIRAN - 4 4 [facility] OUTPATIEN [facility] T OFFICE 99187 TEDDY SILVEIRA OUTPATIEN 4 4 MEDICAL JAM T VISIT SERV 25 FOUNDATIO [facility] KIRAN - 4 4 [facility] OUTPATIEN [facility] KIRAN - 4 4 [facility] OUTPATIEN [facility] T OFFICE 66124 TEDDY SILVEIRA OUTPATIEN 3 3 MEDICAL JAM T V[facility]IT [facility] - 3 3 [facility] KIRAN - 3 3 [facility] - 3 3 [facility] - 3 3 [facility]PATIEN INC T OFFICE 68663 TE WONG OUTPATIEN 3 3 T VISIT 15 MINUTES OFFICE 12544 TEDDY SILVEIRA OUTPATIEN 3 3 MEDICAL JAM T VISIT SERV 25 FOUNDATIO MINUTES HOSPITAL UNIVERSIT - 3 3 Y [facility]RY [facility] KIRAN - 3 3 [facility] INC T OFFICE 46072 TE WONG TE JUDITH OUTPATIEN 2 2 T VISIT 25 MINUTES OFFICE 20741 TE JUDITH TE JUDITH OUTPATIEN 2 2 T VISIT 15 MINUTES HOSPITAL KIRAN - 2 2 [facility]PATIEN [facility] KIRAN - 2 2 [facility]EN [facility] T OFFICE 30345 A Taco CRAWFORD OUTPATIEN 2 2 [facility] T VISIT PSC 15 MINUTES OFFICE 49768 A Taco AKERS OUTPATILALO 2 2 [facility] T VISIT PSC 25 MINUTES [facility] KIRAN - 2 2 [facility] KIRAN - 2 2 [facility] T EMERGENCY 51056 KIRAN 2 2 [facility] DEPARTMEN [facility] T VISIT LOW/MODER SEVERITY OFFICE 96402 A Taco GRANADOS 2 2 [facility] T VISIT PSC 15 [facility]ES [facility]
--- OUTSIDE RECORDS SUMMARY | 2017-04-26 13:56 | External Medical Summary Rpt ---
Author Author , ARIC CORBETT Address Unknown Phone [email or web address] Care Team Providers Care Shank Maker Name Role Phone A Taco FLETCHER MD P[facility], A Unavailable Unavailable Taco FLETCHER MD PSC ATTILI ANI, ATTILI Unavailable Unavailable ANI [facility] Un[facility], [facility] BEINEKE CHRISTIANO, BEINEKE Unavailable Unavailable CHRISTIANO BENSADOUN NICK, Unavailable Unavailable BENSADOUN NICK LARRY, LARRY Unavailable Unavailable LARRY ALL, LARRY ALL Unavailable Unavailable CHAND JAXON, CHAND Unavailable Unavailable JAXON [facility], Unavailable Unavailable [facility] Un[facility] Unavailable [facility], [facility] TE WONG, TE WONG Unavailable Unavailable TE WONG, TE WONG Unavailable Unavailable [facility] Un[facility]available [facility] Unavailable [facility]available [facility] Unavailable Unavailable INC, [facility] Unavailable Unavailable HOSPITAL P, 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 [place] [facility]STEOARTHRI [facility] TIS LEFT HIP [id number] PAIN IN 03-06-2017 [place] RIGHT HIP MEDICAL IMAGING ASS Q72245 PAIN IN 03-06-2017 [place] LEFT HIP MEDICAL IMAGING ASS Z720 TOBACCO USE 03-06-2017 [facility] D500 IRON 07-28-2016 [place] [facility] DEFICIENCY SERV ANEMIA SEC FOUNDATION TO BLOOD LOSS CHRONIC Z1231 ENCOUNTER 07-12-2016 [place] SCREENING MEDICAL MAMMO MALIG IMAGING ASS NEOPLASM BREAST Z85258 ENCOUNTER 07-12-2016 [place] FOR MEDICAL SCREENING IMAGING ASS FOR OSTEOPOROSI S Z780 ASYMPTOMATI 07-12-2016 [place] C MEDICAL MENOPAUSAL IMAGING ASS STATE E538 DEFICIENCY 07-08-2016 [facility] OF OTHER [facility] SPECIFIED B INC GROUP VITAMINS E7800 PURE 07-08-2016 [facility] HYPERCHOLES [facility] TEROLEMIA INC UNSPECIFIED L509 URTICARIA 07-08-2016 [facility] UNSPECIFIED [facility] INC R945 ABNORMAL 07-08-2016 [facility] RESULTS OF [facility] LIVER INC FUNCTION STUDIES 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 [facility] PULMONARY [facility] NODULE INC R918 OTHER 12-19-2015 [place] NONSPECIFIC MEDICAL ABNORMAL IMAGING ASS FINDING OF LUNG FIELD J439 EMPHYSEMA 12-17-2015 [facility] UNSPECIFIED [facility] INC K828 OTHER 11-28-2015 [place] SPECIFIED MEDICAL DISEASES OF IMAGING ASS GALLBLADDER L299 PRURITUS 11-28-2015 [facility] UNSPECIFIED [facility] INC R7989 OTHER SPEC 11-28-2015 [place] ABNORMAL MEDICAL FINDINGS IMAGING ASS BLOOD CHEMISTRY J069 ACUTE UPPER 09-11-2015 [facility] INFECTION UNSPECIFIED 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 4928 OTHER 06-06-2015 [place] EMPHYSEMA [facility]ICAL [facility]ING ASS 31462 OTHER 06-06-2015 [place] DISEASES OF MEDICAL LUNG NOT IMAGING ASS ELSEWHERE CLASSIFIED 72951 OTHER 06-06-2015 [facility] NONSPECIFIC [facility] ABNORMAL INC FINDING OF LUNG FIELD 2689 UNSPECIFIED 02-28-2015 [facility] DEFICIENCY INCORPORAT 2724 OTHER AND 02-28-2015 [facility] UNSPECIFIED DIAGNOSTICS INCORPORAT HYPERLIPIDE RAY 4019 UNSPECIFIED 02-28-2015 [facility] ESSENTIAL [facility]AGNOSTICS HYPERTENSIO INCORPORAT N 496 CHRONIC 02-28-2015 TE [facility] AIRWAY OBSTRUCTION NEC 47759 ESOPHAGEAL 02-28-2015 TE WONG REFLUX 7242 LUMBAGO 02-28-2015 TE WONG 16514 OBSTRUCTIVE 12-11-2014 [facility] CHRONIC [facility] BRONCHITIS INC WITHOUT EXACERBAT V0481 NEED 06-21-2014 TE W[facility] PROPHYLACTI C VACCINATION &INOCULATIO N FLU V7612 OTHER 06-18-2014 [place] SCREENING [facility] MAMMOGRAM INC 4919 UNSPECIFIED 05-28-2014 [facility] CHRONIC [facility] BRONCHITIS INC V5869 LONG-TERM 05-22-2014 [place] (CURRENT) [facility] USE OF INC OTHER MEDICATIONS 7906 OTHER 01-22-2014 [facility] ABNORMAL DIAGNOSTICS BLOOD CHEMISTRY 13991 UNSPEC 01-02-2014 [place] [facility] HISTOPLASMO SERV SIS WITHOUT FOUNDATIO MENTION MANIFEST 4293 CARDIOMEGAL 11-02-2013 [facility] P 11528 HISTOPLASMA 05-16-2013 [place] MED[facility] CAPSULATUM SERV PNEUMONIA FOUNDATIO 2449 UNSPECIFIED 05-16-2013 [facility] HYPOTHYROID INC ISM 70640 UNSPECIFIED 01-12-2013 [place] ABNORMAL MEDICAL MAMMOGRAM IMAGING ASS 51741 UNSPECIFIED 01-03-2013 [place] [facility] HISTOPLASMO INC SIS PNEUMONIA 73441 OTHER 12-22-2012 [place] SPECIFIED MEDICAL DISORDERS IMAGING ASS OF BREAST V163 FAMILY 12-22-2012 [place] HISTORY OF MEDICAL MALIGNANT IMAGING ASS NEOPLASM OF BREAST 47599 INCONCLUSIV 12-13-2012 [place] E MAMMOGRAM MEDICAL IMAGING ASS 2722 MIXED 12-04-2012 TE [facility] HYPERLIPIDE RAY 4439 UNSPECIFIED 12-04-2012 [facility] PERIPHERAL VASCULAR DISEASE 486 PNEUMONIA, 10-24-2012 [place] [facility] ORGANISM SERV UNSPECIFIED FOUNDATIO 5130 ABSCESS OF 10-24-2012 [place] [facility] LUNG SERV FOUNDATIO 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 S[facility] OF ANKLE SPRAIN AND STRAIN 64407 SWELLING OF 12-31-2011 [place] [facility] E8889 UNSPECIFIED 12-31-2011 [place] [facility] 4619 ACUTE 10-28-2011 A Taco FLETCHER SINUSITISMD PSC UNSPECIFIED 4829 UNSPECIFIED 06-16-2010 [facility] BACTERIAL [facility] PNEUMONIA INTER 42694 ACUTE 06-16-2010 [facility] RESPIRATORY [facility] FAILURE INTER 514 PULMONARY 06-11-2010 [place] [facility] CONGESTION SERV AND FOUNDATIO HYPOSTASIS 5180 PULMONARY 06-11-2010 [place] [facility] COLLAPSE SERV FOUND[facility]IO 83558 ABDOMINAL 06-11-2010 [place] [facility] PAIN RIGHT SERV LOWER FOUNDATIO QUADRANT 28160 ACUTE AND 06-06-2010 [place] [facility] CHRONIC SERV RESPIRATORY FOUNDATIO FAILURE 7931 NONSPEC 06-06-2010 [place] [facility] FIND RAD SERV OTH EXAM FOUNDATIO BODY STRUCT LUNG FIELD V554 ATTN OTHER 06-06-2010 [place] [facility] ARTIFICIAL SERV OPENING FOUNDATIO DIGESTIVE TRACT 81319 ATRIAL 06-04-2010 [place] [facility] FIBRILLATIO SERV N FOUNDATIO 4660 ACUTE 06-04-2010 [facility] 0389 UNSPECIFIED 06-03-2010 [facility] 4589 UNSPECIFIED 06-03-2010 [facility] HYPOTENSION 481 PNEUMOCOCCA 06-03-2010 [place] [facility] L PNEUMONIA SERV FOUNDATIO 5185 PULMONARY 06-03-2010 [place] [facility] INSUFFICIEN SERV CY FOLLOW FOUNDATIO TRAUMA & SURGERY 28074 SEPTIC 06-03-2010 [facility] 28915 VENTILATOR 06-03-2010 [facility] PNEUMONIA V550 ATTENTION 06-03-2010 [place] MEDICAL TO SERV TRACHEOSTOM FOUNDATIO Y Immunization [...] DOS Code Location Performer Comment RADEX HIP 62970 [place] LARRY 7 MEDICAL UNILATERA IMAGING L WITH ASS PELVIS 2-3 VIEWS THERAPEUT 91170 [facility] IC 7 [facility] PROPHYLAC INC INC TIC/DX INJECTION SUBQ/IM COMPUTER- 49200 [facility] AIDED 6 MEDICAL CHRISTIANO DETECTION IMAGING ASS SCREENING MAMMOGRAP HY SCREENING G0202 [facility] 6 MEDICAL CHRISTIANO MAMMOGRAP IMAGING HY DANIS ASS INCL CAD WHEN PERFORMD DXA BONE 24968 [facility] 6 MEDICAL CHRISTIANO STUDY 1/> IMAGING SITES ASS AXIAL SKEL COLLECTIO 19320 [facility] N VENOUS 6 [facility] BLOOD INC INC VENIPUNCT URE LIPID 24756 [facility] PANEL 6 [facility] INC INC BLOOD 57954 [facility] COUNT 6 [facility] COMPLETE INC INC AUTO&[place] [address] [facility] B[facility] THYROID 6 [facility] STIMULATI INC INC NG HORMONE TSH CYANOCOBA 39799 [facility] B[facility] ANAI 6 [facility] VITAMIN INC INC B-12 COMPREHEN 73590 [facility] SIVE 6 [facility] METABOLIC INC INC PANEL CT THORAX 30098 YOHANA LARRY ALL W/O 6 MEDICAL CONTRAST IMAGING MATERIAL ASS GAS 04520 [facility] MALONEYON DILUT/WAS 6 [facility] HOUT LUNG INC INC VOL W/[place] DISTRIB VENT&[place] [address] [facility] DIFFUSING 6 [facility] CAPACITY INC INC NONINVASI 01756 [facility] VE 6 [facility] EAR/PULSE INC INC OXIMETRY MULTIPLE DETER BRNCDILAT 16802 [facility] RSPSE 6 [facility] SPMTRY INC INC PRE&[place] [address] YOHANA LARRY ALL ABDOMINAL 6 MEDICAL REAL IMAGING TIME ASS W/IMAGE LIMITED BLOOD 70527 [facility] COUNT 6 [facility] COMPLETE INC INC AUTO&[place] [address] [facility] THYROID 6 [facility] STIMULATI INC INC NG HORMONE TSH COLLECTIO 58456 [facility] N VENOUS 6 [facility] BLOOD INC INC VENIPUNCT URE COMPREHEN 81086 [facility] SIVE 6 [facility] METABOLIC INC INC PANEL DETERMINA 96476 [place] [facility] TION 5 VISION ANG REFRACTIV CENTER E [facility] OPHTH 96437 [place] [facility]IF[facility] MEDICAL 5 VISION ANG XM&EVAL CENTER [facility] PT 1/> VST CT THORAX 38501 YOHANA LARRY ALL W/O 5 MEDICAL CONTRAST IMAGING MATERIAL ASS COLLECTIO 81164 TE WONG N VENOUS 5 [place] [address] D[facility]AK [facility] THYROID 5 DIAGNOSTI DIAGNOSTI STIMULATI CS CS NG INCORPORA INCORPORA HORMONE T T TSH BLOOD 98299 [facility] COUNT 5 DIAGNOSTI DIAGNOSTI COMPLETE CS CS AUTO&AUTO INCORPORA INCORPORA DIFRNTL T T WBC LIPID 33880 [facility] PANEL 5 DIAGNOSTI DIAGNOSTI CS CS INCORPORA INCORPORA T T COMPREHEN 77971 [facility] SIVE 5 DIAGNOSTI DIAGNOSTI METABOLIC CS CS PANEL INCORPORA INCORPORA T T 25 24821 [facility] HYDROXY 5 DIAGNOSTI DIAGNOSTI INCLUDES [...] WONG ATION OF 4 INFLUENZA VIRUS VACCINE [facility]- 67001 [facility] AIDED 4 [facility] DETECTION INC INC SCREENING MAMMOGRAP HY SCREENING G0202 [facility] 4 [facility] MAMMOGRAP INC INC HY DANIS INCL CAD WHEN PERFORMD BRNCDILAT 11276 [facility] RSPSE 4 [facility] SPMTRY INC INC PRE&POST- BRNCDILAT ADMN NONINVASI 85642 [facility] VE 4 [facility] EAR/PULSE [place] [address] [facility] B[facility] DIFFUSING 4 [facility] CAPACITY INC INC GAS 98661 [facility] DILUT/WAS 4 [facility] HOUT LUNG INC INC VOL W/WO DISTRIB VENT&V COLLECTIO 35656 [facility] N VENOUS 4 [facility] [place] [address] [facility] THYROID 4 [facility] STIMULATI INC INC NG HORMONE TSH BLOOD 76661 [facility] COUNT 4 [facility] COMPLETE INC INC AUTO&AUTO DIFRNTL WBC COMPREHEN 96188 [facility] B[facility] SIVE 4 [facility] METABOLIC INC INC PANEL BASIC 38356 [facility] METABOLIC 4 DIAGNOSTI DIAGNOSTI PANEL CS CS CALCIUM TOTAL CT THORAX 74822 [place] CONNER W/O 4 MEDICAL RIMA CONTRAST IMAGING MATERIAL ASS 3D 63381 [place] [facility] RENDERING 4 MEDICAL RIMA IMAGING W/INTERP& ASS POSTPROC DIFF WORK STATION ECHO 52688 [facility] TTHRC R-T 4 [facility] 2D INC INC W/WOM-MOD E COMPL SPEC&[place] [address] [facility] THYROID 4 DIAGNOSTI DIAGNOSTI STIMULATI CS CS NG HORMONE TSH BLOOD 85673 [facility] COUNT 4 DIAGNOSTI DIAGNOSTI COMPLETE CS CS AUTO&AUTO DIFRNTL WBC LIPID 39776 [facility] PANEL 4 DIAGNOSTI DIAGNOSTI CS CS 25 68833 [facility] HYDROXY 4 DIAGNOSTI DIAGNOSTI INCLUDES CS CS FRACTIONS IF PERFORMED COMPREHEN 28396 [facility] SIVE 4 DIAGNOSTI DIAGNOSTI METABOLIC CS CS PANEL COMPREHEN 73003 [facility] SIVE 3 [facility] METABOLIC INC INC PANEL HEPATITIS 39685 [facility] A 3 [facility] ANTIBODY INC INC HAAB BILIRUBIN 64848 [facility] DIRECT 3 [place] [address] [facility] HEPATITIS 3 [facility] B INC INC SURFACE ANTIGEN PROTHROMB 88593 [facility] IN TIME 3 [facility] INC INC HEPATITIS 54452 [facility] Pereyra CORE 3 [facility] ANTIBODY INC INC HBCAB TOTAL HEPATITIS 81910 [facility] Pereyra SURF 3 [facility] ANTIBODY INC INC HBSAB HEPATITIS 14097 [facility] C 3 [facility] ANTIBODY INC INC BLOOD 13539 [facility] COUNT 3 [facility] COMPLETE INC INC AUTO&[place] [address] [facility] B[facility] THYROID 3 [facility] STIMULATI INC INC NG HORMONE TSH THROMBOPL 02935 [facility] ASTIN 3 [facility] TIME INC INC PARTIAL PLASMA/WH OLE BLOOD COLLECTIO 97801 [facility] N VENOUS 3 [facility] BLOOD INC INC VENIPUNCT URE COLLECTIO 59039 [facility] N VENOUS 3 [facility] BLOOD INC INC VENIPUNCT URE 3D 73896 [facility] RENDERING 3 [facility] INC INC W/INTERP& POSTPROC DIFF WORK STATION CT THORAX 36134 [facility] W/O 3 [facility] CONTRAST INC INC MATERIAL BLOOD 43630 [facility] COUNT 3 [facility] COMPLETE INC INC AUTO&AUTO DIFRNTL WBC BASIC 23213 [facility] B[facility] METABOLIC 3 [facility] PANEL INC INC CALCIUM TOTAL DIAGNOSTI G0206 YOHANA [place] 3 MEDICAL RIMA MAMMOGRAP IMAGING HY INCL ASS CAD WHEN PERF; UNI BASIC 12660 [facility] METABOLIC 3 [facility] PANEL INC INC CALCIUM TOTAL BLOOD 90277 [facility] COUNT 3 [facility] COMPLETE INC INC AUTO&AUTO DIFRNTL WBC COLLECTIO 59969 [facility] N VENOUS 3 [facility] BLOOD INC INC VENIPUNCT URE SCREENING G0202 [place] [facility] 3 MEDICAL RIMA MAMMOGRAP IMAGING HY DANIS ASS INCL CAD WHEN PERFORMD COMPUTER- 30040 [place] [facility] AIDED 3 MEDICAL RIMA DETECTION IMAGING ASS SCREENING MAMMOGRAP HY DIAGNOSTI G0206 [facility] 3 MEDICAL RIMA MAMMOGRAP IMAGING HY INCL ASS CAD WHEN PERF; UNI CONCENTRA 60976 [facility] TION 3 Y Y INFECTIOU [facility] S AGENTS VIRUS 24621 [facility] TISS CUL 3 [facility] CYTOPATHI C EFFECT CYTP 34947 [facility] SLCTV 3 Y Y CELL [facility] ENHANCEME NT INTERPJ XCP[place] C/[place] L[place] [address] TEDDY DEAN ROSA SURG 3 MEDICAL PATHOLOGY SERV FOUNDATIO GROSS&JAXON ROSCOPIC EXAM BRONCHOSC 22597 [facility] OPY [address] [facility] /ENDOBRNC L BX 1+ SITES BRONCHOSC 64931 TEDDY LYLASADOUN OPY 3 MEDICAL NICK W/TRANSBR SERV ONCHIAL FOUNDATIO LUNG BX [address] [facility] FNGI 3 Y Y MOLD/YEAS [facility] T PRSMPTV OTH XCPT BLOOD IADNA NOS 96179 [facility] DIRECT 3 Y Y PROBE [facility] EACH ORGANISM SPECIAL 23321 TEDDY DEAN ROSA STAIN 3 MEDICAL GROUP 1 SERV MICROORGA FOUNDATIO NISMS I&R SMR PRIM 92057 [facility] SRC 3 Y Y GRAM/GIEM [facility] SA STAIN BCT FUNGI/SARBJIT L VIRUS 94382 [facility] CENTRIFUG 3 Y Y E ENHNCD [facility] ID IMFLUOR STAIN EA INJECTION J2250 [facility] 3 Y Y MIDAZOLAM [facility] HCL PER [address] [facility] FENTANYL 3 Y Y CITRATE [facility] 0.[address] [facility] XCPT 3 Y Y URINE [facility] BLOOD/STO OL AEROBIC ISOL CULTURE 14595 [facility] TUBERCLE/ 3 Y Y [facility] B[facility] ANY ISOL SMR PRIM 05669 [facility] SRC 3 Y Y [facility] NT&/AFS BCT FNGI PARASIT TISS DENISE 85432 [facility] SLIDE 3 Y Y [facility] SKN/HR/NL S FNGI/ECTO PARASIT IAADI 40399 [facility] PNEUMOCUS 3 Y Y [facility] CARINII IADNA 64392 [facility] RESPIRATR 3 Y Y Y PROBE & [facility] REV TRNSCR 3-5 [facility] [address] [facility] BRUSHING/ 3 Y Y [facility] BRUSH[facility] CT THORAX 89480 [place] [facility] W/O 3 MEDICAL RIMA CONTRAST IMAGING MATERIAL ASS 3D 27945 [place] [facility] RENDERING 3 MEDICAL RIMA IMAGING W/INTERP& ASS POSTPROC DIFF WORK STATION COLLECTIO 54032 [facility] BEKC N VENOUS 3 [facility] BLOOD INC INC VENIPUNCT URE GAS 69775 [facility] DILUT/WAS 3 [facility] HOUT LUNG INC INC VOL W/WO DISTRIB VENT&V PRESSURIZ 03556 [facility] ED/NONPRE 3 [facility] SSURIZED INC INC INHALATIO N TREATMENT BRNCDILAT 08629 [facility] RSPSE 3 [facility] SPMTRY INC INC PRE&POST- BRNCDILAT ADMN BLOOD 83943 [facility] COUNT 3 [facility] COMPLETE INC INC AUTO&AUTO DIFRNTL WBC BASIC 27927 [facility] B[facility] METABOLIC 3 [facility] PANEL INC INC CALCIUM TOTAL COMPLEMEN 15167 [facility] T 3 [facility] FIXATION INC INC TESTS EACH ANTIGEN SPMTRY 73343 TEDDY SILVEIRA W/VC 3 MEDICAL JAM EXPIRATOR SERV Y EDITH FOUNDATIO W/[place] [address] TEDDY SILVEIRA DIFFUSING 3 MEDICAL JAM CAPACITY SERV FOUNDATIO BRNCDILAT 16636 TEDDY SILVEIRA RSPSE 3 MEDICAL JAM SPMTRY SERV PRE&POST- FOUNDATIO BRNCDILAT ADMN GAS 58983 TEDDY SILVEIRA DILUT/WAS 3 MEDICAL JAM HOUT LUNG SERV VOL W/WO FOUNDATIO DISTRIB VENT&V IIV 27471 TE WONG VACCINE 2 PRESERV FREE INCREASED AG CONTENT IM COLLECTIO 36953 TE [facility] N VENOUS 2 BLOOD VENIPUNCT URE PPSV23 98144 TE WONG VACCINE 2 2 YRS OR OLDER FOR SUBQ/IM USE ADMINISTR G0009 TE WONG ATION OF 2 PNEUMOCOC TORO VACCINE ADMINISTR G0008 TE WONG ATION OF 2 [place] [address] [facility] DIFFUSING 2 PULMONARY MAT CAPACITY & CRITICAL BRNCDILAT 41930 [facility] RSPSE 2 PULMONARY MAT SPMTRY & PRE&POST- CRITICAL BRNCDILAT ADMN RADIOLOGI 68471 [facility] C EXAM 2 PULMONARY MAT CHEST 2 & VIEWS CRITICAL FRONTAL&L ATERAL PLETHYSMO 91034 [facility] GRAPHY 2 PULMONARY MAT LUNG & VOLUMES CRITICAL W/WO AIRWAY RESIST COLLECTIO 86028 [facility] N VENOUS 2 [facility] BLOOD INC INC VENIPUNCT URE 3D 01746 [facility] RENDERING 2 [facility] INC INC W/INTERP& POSTPROC DIFF WORK STATION CT THORAX 50590 [facility]K 2 [facility] W/[place] [address] [facility] UREA 2 [facility] NITROGEN INC INC QUANTITAT ABY CREATININ 69373 [facility] E BLOOD 2 [facility] INC INC LOCM Q9967 [facility] 300-399 2 [facility] MG/ML INC INC IODINE CONCENTRA TION PER ML RADIOLOGI 08751 [facility] C EXAM 2 [facility] CHEST 2 INC INC VIEWS FRONTAL&L ATERAL RADIOLOGI 71914 [place] [facility] C EXAM 2 MEDICAL RIMA CHEST 2 IMAGING VIEWS ASS FRONTAL&L ATERAL COLLECTIO 72723 A Taco AKERS N VENOUS 2 [facility] BLOOD PSC VENIPUNCT URE TRANSFERA 54736 A Taco ALFARO OSWALD SE 2 [facility] ASPARTATE PSC AMINO AST SGOT TRANSFERA 12264 A Taco ALFARO OSWALD SE 2 [facility] ALANINE PSC AMINO ALT SGPT LIPID 96914 A Taco ALFARO OSWALD PANEL 2 [facility] PSC BLOOD 22770 A [facility] ALFAOR OSWALD COUNT 2 JUSTINE HENLEY COMPLETE PSC AUTO&AUTO DIFRNTL WBC ANKLE [id number] [facility] CONTROL 2 ORTHOSIS STIRRUP STYL RIGID PREFAB RADEX 52108 [place] [facility] ANKLE 2 MEDICAL RIMA COMPLETE IMAGING MINIMUM 3 [facility] 54866 [facility] DISCHARGE 0 Y OF ANT DAY [place] MANAGEMEN INTER T 30 MIN/< SBSQ 50899 [facility] 0 Y OF ANT CARE/DAY [place] 25 INTER MINUTES SBSQ [id number] [facility] 0 Y OF ANT CARE/DAY [place] 25 INTER MINUTES SBSQ 06489 [facility] 0 Y OF ANT CARE/DAY [place] 25 INTER MINUTES RADIOLOGI 30556 [facility] 0 MEDICAL EXAMINATI SERV ON CHEST FOUNDATIO [place] RADIOLOGI 61530 [place] [facility] 0 MEDICAL EXAMINATI SERV ON CHEST FOUNDATIO [place] FRONTAL SBSQ 93324 [facility] 0 Y OF ANT CARE/DAY [place] 25 INTER MINUTES SBSQ 49181 [facility] 0 MEDICAL VALENTIN CARE/DAY SERV 25 FOUNDATIO MINUTES RADIOLOGI 07506 [place] [facility] 0 MEDICAL EXAMINATI SERV ON CHEST FOUNDATIO [place] RADEX 14883 [place] [facility]OM[facility] 1 0 MEDICAL ART SERV ANTEROPOS FOUNDATIO TERIOR [place]IEW SBSQ 44802 [place] [facility] 0 MEDICAL VALENTIN CARE/DAY SERV 35 FOUNDATIO MINUTES RADIOLOGI 32953 [place] [facility] 0 MEDICAL TORO EXAMINATI SERV ON CHEST FOUNDATIO [place] RADIOLOGI 46647 [place] [facility] C 0 MEDICAL ANI EXAMINATI SERV ON CHEST FOUNDATIO [place] CRITICAL 64048 [place] [facility] 0 MEDICAL VALENTIN ILL/INJUR SERV ED FOUNDATIO PATIENT INIT 30-74 MIN CRITICAL 02288 [place] [facility] 0 MEDICAL VALENTIN ILL/INJUR SERV ED FOUNDATIO PATIENT INIT 30-74 MIN RADIOLOGI 18293 [place] [facility] 0 MEDICAL EXAMINATI SERV ON CHEST FOUNDATIO [place] RADIOLOGI 87534 [place] [facility] 0 MEDICAL MK EXAMINATI SERV ON CHEST FOUNDATIO [place]ONTAL SBSQ 63398 [facility] 0 MEDICAL NICK CARE/DAY SERV 35 FOUNDATIO MINUTES RADEX 74126 [place] DON[place] ABDOMEN 1 0 MEDICAL MK SERV ANTEROPOS FOUNDATIO [place] RADEX 49705 [place] ABDOMEN 1 0 MEDICAL MK SERV ANTEROPOS FOUNDATIO TERIOR VIEW SBSQ 23174 [facility] 0 MEDICAL NICK CARE/DAY SERV 35 FOUNDATIO MINUTES RADIOLOGI 41576 [place] DON[facility] C 0 MEDICAL MK EXAMINATI SERV ON CHEST FOUNDATIO [place] RADIOLOGI 82069 [place] [facility] C 0 MEDICAL JAXON EXAMINATI SERV ON CHEST FOUNDATIO [place] CRITICAL 18296 [place] [facility] 0 MEDICAL VALENTIN ILL/INJUR SERV ED FOUNDATIO PATIENT INIT 30-74 MIN ECG 49130 [place] JERMAINE MARCO A ROUTINE 0 MEDICAL ECG SERV W/LEAST FOUNDATIO 12 LDS I&R ONLY ECG 14375 [place] CARROLL C ROUTINE 0 MEDICAL ECG SERV W/LEAST FOUNDATIO 12 LDS I&R ONLY CRITICAL 44580 [place] [facility] 0 MEDICAL VALENTIN ILL/INJUR SERV ED FOUNDATIO PATIENT INIT 30-74 MIN BRNCC 40591 [place] RAD[facility] W/BRNCL 0 MEDICAL VALENTIN ALVEOLAR SERV L[place] FOUNDATIO RADIOLOGI 94083 [place] [facility] MICHEL[facility] C 0 MEDICAL EXAMINATI SERV ON CHEST FOUNDATIO [place] FRONTAL CLOSED [address]324 [facility] BIOPSY OF 0 Y Y [facility] CYTP 45350 [facility] SLCTV 0 Y OF MAT CELL [place] [facility] NT INTERPJ XCPT C/V SPECIAL 52577 [facility] 0 Y OF MAT GROUP 1 [place] [facility] NISMS I&R CONT 9672 [facility] INVASIVE 0 Y Y [facility] 96 CONSECUTI VE HRS/MORE RADIOLOGI [address] [place] ELVA MICHELLE C 0 MEDICAL EXAMINATI SERV ON CHEST FOUNDATIO SINGLE VIEW FRONTAL CRITICAL 76168 TEDDY SILVEIRA CARE 0 MEDICAL JAM ILL/INJUR SERV ED FOUNDATIO PATIENT INIT 30-74 MIN AMB [id number] PETROLEUM PETROLEUM SERVICE 0 CONVNTION HELICOPTE HELICOPTE AIR SRVC RS INC INC TRANSPORT [address] CRITICAL 01919 TEDDY SILVEIRA CARE 0 MEDICAL JAM ILL/INJUR SERV ED FOUNDATIO PATIENT ADDL 30 MIN Encounters Encounter Start End Date Code Location Performer Type Date EMERGENCY 86844 [facility]AN 7 7 [facility] T VISIT MODERATE SEVERITY EMERGENCY 31606 [facility] DEPT 7 7 PHYSICIAN VISIT S, [facility] HIGH SEVERITY& [facility] K[facility]AN - 7 7 [facility] OFFICE 15223 TEDDY RAOUL OUTPATIEN 6 6 MEDICAL JAM T VISIT SERV 25 FOUNDATIO MINUTES [facility] - 6 6 [facility] KIRAN - 6 6 [facility] KIRAN - 6 6 [facility] - 6 6 [facility] KIRAN - 6 6 [facility] KIRAN - 6 6 [facility]IRAN - 5 5 [facility] EMERGENCY 74561 KIRAN 5 5 [facility] T VISIT LIMITED/M INOR PROB EMERGENCY 95165 [facility] 5 5 PHYSICIAN DEPARTMEN S, [facility] T VISIT MODERATE SEVERITY [facility]OSPITAL KIRAN - 5 5 [facility] OFFICE 65454 [facility] 5 5 T VISIT 25 MINUTES HOSPITAL KIRAN - 5 5 [facility] KIRAN - 5 5 [facility] KIRAN - 4 4 [facility] KIRAN - 4 4 [facility]EN [facility] KIRAN - 4 4 [facility] T OFFICE 47356 TEDDY SILVEIRA OUTPATIEN 4 4 MEDICAL JAM T VISIT SERV 25 FOUNDATIO [facility] KIRAN - 4 4 [facility] KIRAN - 4 4 [facility] T OFFICE 59058 TEDDY SILVEIRA OUTPATIEN 3 3 [facility]AM [facility] V[facility] - 3 3 [facility] KIRAN - 3 3 [facility] - 3 3 [facility] KIRAN - 3 3 [facility] INC T OFFICE 50470 TE WONG OUTPATIEN 3 3 T VISIT 15 MINUTES OFFICE 27479 TEDDY SILVEIRA OUTPATIEN 3 3 MEDICAL JAM T VISIT SERV 25 FOUNDATIO MINUTES [facility]ITAL [facility] - 3 3 [facility] - 3 3 [facility] OUTPATIEN INC T OFFICE 17939 TE WONG TE JUDITH OUTPATIEN 2 2 T VISIT 25 MINUTES OFFICE 18698 TE JUDITH TE JUDITH OUTPATIEN 2 2 T VISIT 15 MINUTES HOSPITAL KIRAN - 2 2 [facility] KIRAN - 2 2 [facility] T OFFICE 70636 A Taco CRAWFORD OUTPATIEN 2 2 [facility] VIS[facility] PSC 15 MINUTES OFFICE 38018 A Taco AKERS OUTPATILALO 2 2 [facility] T VISIT PSC 25 MINUTES [facility]OSPITAL KIRAN - 2 2 [facility] KIRAN - 2 2 [facility] T EMERGENCY 16682 KIRAN 2 2 [facility] DEPARTMEN [facility] T VISIT LOW/MODER SEVERITY OFFICE 59091 A Taco GRANADOS 2 2 [facility] T VISIT PSC [facility]
--- OUTSIDE RECORDS SUMMARY | 2017-04-26 13:57 | External Medical Summary Rpt ---
Author Author RAJENDRAHAYDEN Ngo, [employer] Organization [employer] Address Unknown Phone Unavailable Results Iron and TIBC Observa Value Referen Units Interpr Notes Date tion ce etation Range Iron 250 - 450 ug/dL No No Apr 18 binding informati informati 2016 1:20 capacity on in on in PM [Mass/vol source source ume] in data data Serum or Plasma Iron 118 - 369 ug/dL No No Apr 18 binding informati informati 2016 1:20 capacity. on in on in PM unsaturat source source ed data data [Mass/vol ume] in Serum or Plasma Iron 27 - 139 ug/dL No No Apr 18 [Mass/vol informati informati 2016 1:20 ume] in on in on in PM Serum or source source Plasma data data Iron 15 - 55 % No Performed Apr 18 saturatio informati at: CB 2017 1:20 n [Mass] on in - [facility] PM in Serum source or Plasma data [address] [address] [address] [place], [place] [id number] Coding Director: Reg Freeman PhD, Phone: [phone] CBC W Auto Differential panel in Blood Observa Value Referen Units Interpr Notes Date tion ce etation Range Basophils 0 - 0.2 K/MM3 Normal No Apr 18 informati 2016 1:20 [#/volume on in PM ] in source Blood by data Automated count Basophils 0.1 - 2.0 % Normal No Apr 18 informati 2016 1:20 leukocyte on in PM s in source Blood by data Automated count Eosinophi 0.0 - 0.4 K/mm3 Normal No Apr 18 ls informati 2016 1:20 [#/volume on in PM ] in source Blood by data Automated count Eosinophi 0.1 - % Normal No Apr 18 ls/100 12.0 informati 2016 1:20 leukocyte on in PM s in source Blood by data Automated count Granulocy 1.8 - 7.8 K/mm3 Normal No Apr 18 porsche informati 2016 1:20 [#/volume on in PM ] in source Blood by data Automated count Granulocy 37.0 - % Normal No Apr 18 porsche/100 80.0 informati 2016 1:20 leukocyte on in PM s in source Blood by data Automated count Hematocri 37.0 - % Normal No Apr 18 t [Volume 47.0 inform2016 1:20 on in PM Fraction] source of Blood data Hemoglobi 12.2 - g/dL No No Apr 18 n 16.2 informati informati 2016 1:20 [Mass/vol on in on in PM ume] in source source Blood data data Lymphocyt 0.7 - 4.5 K/mm3 Normal No Apr 18 es informati 2016 1:20 [#/volume on in PM ] in source Unspecifi data ed specimen by Automated count Lymphocyt 10 - 50.0 % Normal No Apr 18 es inform2016 1:20 [#/volume on in PM ] in source Unspecifi data ed specimen by Automated count Erythrocy 27 - 31.2 pg Normal No Apr 18 te mean informati 2016 1:20 corpuscul on in PM ar source hemoglobi data n [Entitic mass] Erythrocy 31.8 - g/dl Normal No Apr 18 te mean 35.4 informati 2017 1:20 corpuscul on in PM ar source hemoglobi data n concentra tion [Mass/vol ume] by Automated count Erythrocy 82.2 - fl Normal No Apr 18 te mean 97.8 informati 2016 1:20 corpuscul on in PM ar volume source [Entitic data volume] by Automated count Monocytes 0.1 - 1.0 K/mm3 Normal No Apr 18 inform2016 1:20 [#/volume on in PM ] in source Blood by data Automated count Monocytes 1.7 - 9.3 % Normal No Apr 18 /100 informati 2017 1:20 leukocyte on in PM s in source Blood by data Automated count Platelet 7.4 - fl Normal No Apr 18 mean 10.4 informati 2016 1:20 volume on in PM [Entitic source volume] data in Blood by Automated count Platelets 142 - 424 K/mm3 No No Apr 18 informati informati 2016 1:20 [#/volume on in on in PM ] in source source Blood data data Erythrocy 4.2 - 5.4 M/mm3 Normal No Apr 18 porsche informati 2017 1:20 [#/volume on in PM ] in source Amniotic data fluid Erythrocy 11.5 - % Normal No Apr 18 te 17.5 informati 2017 1:20 distribut on in PM ion width source [Entitic data volume] by Automated count Leukocyte 4.8 - K/MM3 Normal No Apr 18 s 10.8 informati 2017 1:20 [#/volume on in PM ] in source Blood data
--- OUTSIDE RECORDS SUMMARY | 2017-04-26 13:57 | External Medical Summary Rpt ---
Author Author , [employer] CORBETT Address Unknown Phone [email or web address] Immunization Name Date Rout CVX Reac Dose Comm Prov Is Faci e tion ent ider Refu lity Give sed n Td 03-0 9 999 Hist H134 No H134 (sukhdev 4-19 oric lt), 97 al Info adso rmat rbed ion - Sour ce Unsp ecif ied
--- OUTSIDE RECORDS SUMMARY | 2017-04-26 13:57 | External Medical Summary Rpt ---
Author Author , ARIC CORBETT Address Unknown Phone [email or web address] Immunization Name Date Rout CVX Reac Dose Comm Prov Is Faci e tion ent ider Refu lity Give sed n Td 03-0 9 999 Hist H134 No H134 (sukhdev 4-19 oric lt), 97 al Info adso rmat rbed ion - Sour ce Unsp ecif ied
--- OUTSIDE RECORDS SUMMARY | 2017-04-26 13:57 | External Medical Summary Rpt ---
[...] PM in Serum source or Plasma data [address] [address] [address] [place], [place] [id number] [employer]: Reg Freeman PhD, Phone: [phone] CBC W Auto Differential panel in [...]
== END 2017-04-26 13:45 | disposition home or self-care (01) ==
LOC: ER 13:04
DX: T23.262A Burn of second degree of back of left hand, initial encounter (principal); I10 Essential (primary) hypertension; J44.9 Chronic obstructive pulmonary disease, unspecified; K21.9 Gastro-esophageal reflux disease without esophagitis; F41.8 Other specified anxiety disorders; Z72.0 Tobacco use; X12.XXXA Contact with other hot fluids, initial encounter; Y92.019 Unspecified place in single-family (private) house as the place of occurrence of the external cause